=== PATIENT | female | born 1940 | race Caucasian/White ===

== ENCOUNTER 2019-04-14 13:38 | Inpatient (IN) | payer OTHER ==
[~2019-04-14] VITALS: Ht 162.6 cm; Wt 83.1 kg
[2019-04-14] MEDS ORDERED: ABILIFY10 MG PO (14:56)
[2019-04-14] MEDS ORDERED: APAP650 PO (14:57)
[2019-04-14] MEDS ORDERED: ZYLOPRIM300 MG PO (14:58)
[2019-04-14] MEDS ORDERED: AMLODIPINE BESYL5 M1 PO (14:59)
[2019-04-14] MEDS ORDERED: ASPIRIN325 PO (15:00)
[2019-04-14] MEDS ORDERED: DIPHENHIST50 MG PO (15:06)
[2019-04-14] MEDS ORDERED: ATIVAN0.5 MG PO (15:06)
[2019-04-14] MEDS ORDERED: BUMETANIDE0.25 MG/1 PO (15:07)
[2019-04-14] MEDS ORDERED: CYMBALTA60 MG PO (15:07)
[2019-04-14] MEDS ORDERED: NEURONTIN 300M300 M2 PO (15:08)
[2019-04-14] MEDS ORDERED: HYDROXYCHLOROQ200 M1 PO (15:09)
[2019-04-14] MEDS ORDERED: NORCO 7.5-3251 EACH PO (15:09)
[2019-04-14] MEDS ORDERED: SYNTHROID112 MC1 PO (15:10)
[2019-04-14] MEDS ORDERED: COZAAR 25 MG TA25 M2 PO (15:10)
[2019-04-14] MEDS ORDERED: MIRALAX17 GM (15:11)
[2019-04-14] MEDS ORDERED: NAPROXEN250 MG PO (15:12)
[2019-04-14] MEDS ORDERED: PROTONIX40 M1 PO (15:13)
[2019-04-14] MEDS ORDERED: NAPROSYN500 MG PO (15:13)
[2019-04-14] MEDS ORDERED: POTASSIUM CHLO10 MEQ PO (15:14)
[2019-04-14] MEDS ORDERED: PROPRANOLOL 20M20 M1 PO (15:15)
[2019-04-14] MEDS ORDERED: DICLOFENAC SOD100 G1 (15:16)
[2019-04-14] MEDS ORDERED: ZANTAC 150MG T150 MG PO (15:17)
[2019-04-14 16:23] LABS: HEMATOCRIT 32.7 % (37.0-47.0); MCH 31.3 pg (26.0-34.0); MCHC 33.6 g/dL (28.0-37.0); RBC 3.52 mil/uL (4.20-5.00); RDW 15.9 % (10.5-14.5); WBC 8.8 thou/uL (4.0-11.0)
[2019-04-14 16:31] LABS: CALCIUM 9.2 mg/dL (8.5-10.1); CREATININE 1.4 mg/dL (0.6-1.0); POTASSIUM 3.5 mmol/L (3.5-5.1)
[2019-04-14 16:37] LABS: ALBUMIN 3.6 g/dL (3.4-5.0); TOTAL BILIRUBIN 0.5 mg/dL (<0.1-1.0); TOTAL PROTEIN 7.5 g/dL (6.4-8.2)
[2019-04-14 21:21] VITALS: BP 133/52
[2019-04-15 01:10] VITALS: BP 134/43
[2019-04-15 05:26] VITALS: BP 124/48
[2019-04-15 08:05] VITALS: BP 114/40
[2019-04-15 08:54] LABS: CALCIUM 9.8 mg/dL (8.5-10.1); CREATININE 1.4 mg/dL (0.6-1.0); POTASSIUM 3.8 mmol/L (3.5-5.1)
[2019-04-15 08:59] LABS: TROPONIN-I 0.69 ng/mL (<0.06)
--- NOTE | 2019-04-15 11:30 | 2DMMODE ---
[facility] [place] [address] 2 D/M-MODE ECHOCARDIOGRAM Name: KENYETTA ETIENNE Room #: 218-P ADM IN M.R.#: [id number] ������������� Admission: 04/14/19 ������������� Attend Phys: Eben Morse MD Discharge: ��� ������������� ��� Date of : 42 Date of Service: 04/15/19 1130 �� Report #: [id number] �������� ��������������������������������������������[id number] THIS REPORT FOR: //name// APPROVED REPORT Study performed: 04/15/2019 08:53:00 EXAM: Comprehensive 2D, Doppler, and color-flow Echocardiogram Patient Location: Bedside Room #: 218 Status: on-call BSA: 1.83 HR: 74 bpm BP: 124/48 mmHg Rhythm: NSR Other Information Study Quality: Adequate Indications Possible NSTEMI, elevated troponin, short of breath, CHF. Hx: HTN, HLP. 2D Dimensions RVDd: 33.24 mm IVSd: 7.49 (7-11mm) LVOT Diam: 20.22 (18-24mm) LVDd: 52.64 mm PWd: 8.34 (7-11mm) LVDs: 35.64 (25-40mm) Aortic Root: 29.49 mm Volumes Left Atrial Volume (Systole) Single Plane 4CH: 74.80 mL Single Plane 2CH: 75.93 mL LA ESV Index: 45.00 mL/m2 Aortic Valve AoV Peak Jacoby.: 3.03 m/s AO Peak Gr.: 36.83 mmHg LVOT Max P.10 mmHg AO Mean Gr.: 24.07 mmHg AO V2 Mean: 2.35 m/s LVOT Max V: 1.01 m/s AO V2 VTI: 73.74 cm CARMEN Vmax: 1.07 cm2 Mitral Valve [facility] [place] [address] 2 D/M-MODE ECHOCARDIOGRAM Name: KENYETTA ETIENNE Room #: 218-P [facility] IN ..#: [id number] ������������� Admission: 04/14/19 ������������� Attend Phys: Eben Morse MD Discharge: ��� ������������� ��� Date of : 42 Date of Service: 04/15/19 1130 �� Report #: [id number] �������� ��������������������������������������������[id number] E/A Ratio: 1.8 MV Decel. Time: 172.06 ms MV E Max Jacoby.: 1.50 m/s MV A Jacoby.: 0.83 m/s MV PHT: 49.90 ms IVRT: 83.04 ms Pulmonary Valve PV Peak Jacoby.: 1.16 m/s PV Peak Gr.: 5.41 mmHg Pulmonary Vein P Vein S: 0.45 m/s P Vein D: 0.77 m/s P Vein S/D Ratio: 0.58 Tricuspid Valve TR Peak Jacoby.: 3.03 m/s RAP Estimate: 5.00 mmHg TR Peak Gr.: 36.83 mmHg PA Pressure: 42.00 mmHg Left Ventricle The left ventricle is normal size. Regional wall motion abnormalities are noted. Mild basal septal hypertrophy is present. Left ventricular systolic function is borderline. LVEF is 50%. Moderate diastolic dysfunction is present (pseudonormal filling). Right Ventricle The right ventricle is normal size. The right ventricular systolic function is normal. Atria Left atrium is moderately dilated. The right atrium size is normal. Aortic Valve Aortic valve leaflets are moderately thickened and calcified. Mild aortic regurgitation. There is moderate valvular aortic stenosis. Calculated aortic valve area is 1.1 cm2 with maximum pressure gradient of 37 mmHg and mean pressure gradient of 24 mmHg. Mitral Valve Mitral valve leaflets are thickened. Mild to moderate mitral annular calcification. Moderate mitral regurgitation. No evidence of mitral valve stenosis. Tricuspid Valve [address] [address] 2 D/M-MODE ECHOCARDIOGRAM Name: KADEEMKENYETTA LOAIZA Room #: 218-P [facility] IN [facility]#: [id number] ������������� Admission: 04/14/19 ������������� Attend Phys: Eben Morse MD Discharge: ��� ������������� ��� Date of : 42 Date of Service: 04/15/19 1130 �� Report #: [id number] �������� ��������������������������������������������[id number] The tricuspid valve is normal in structure. Mild tricuspid regurgitation. Estimated PAP is 40-45mmHg. Pulmonic Valve The pulmonary valve is normal in structure. Trace pulmonic regurgitation. Great Vessels The aortic root is normal in size. IVC is normal in size and collapses >50% with inspiration. Pericardium There is no pericardial effusion. <Conclusion> The left ventricle is normal size. Left ventricular systolic function is borderline. LVEF is 50%. Moderate diastolic dysfunction is present (pseudonormal filling). The right ventricle is normal size. Left atrium is moderately dilated. There is moderate valvular aortic stenosis. Mild aortic regurgitation. Mitral valve leaflets are thickened. Mild to moderate mitral annular calcification. Moderate mitral regurgitation. Mild tricuspid regurgitation. Estimated PAP is 40-45mmHg. ��������������������������������������������� <ELECTRONICALLY SIGNED> ���������������������������������������� By: Mario Mcgregor MD ��������������������������������������������� 04/15/19 1130 1130 1130 Mario Mcgregor MD /INF
[2019-04-15] MEDS ORDERED: LOSARTAN-HCTZ1 EAC1 PO (11:32)
[2019-04-15] MEDS ORDERED: MIRALAX17 GM PO (11:33)
[2019-04-15 12:05] VITALS: BP 125/60
[2019-04-15 16:10] VITALS: BP 113/76
[2019-04-15 20:51] VITALS: BP 126/47
--- NOTE | 2019-04-15 21:27 | HC ---
[facility] [place] [address] CONSULTATION Name: KENYETTA ETIENNE Room #: 218-P ADM IN M.R.#: [id number] Admission: 04/14/19 ������������������ Attend Phys: Eben Morse MD Discharge: ������������������ Date of : 42 Report #: [id number] THIS REPORT FOR: //name// CC: Jack Morse DATE OF SERVICE: 04/15/2019 INDICATION: Dyspnea. HISTORY OF PRESENT ILLNESS: This is a 78-year-old female with a history of hypertension, hypercholesterolemia, depression, thyroid disease, renal artery stent, presenting with shortness of breath. Yesterday morning, she developed sudden onset of nausea and vomiting. This was followed by shortness of breath and chest discomfort. She lives in an assisted living facility. She reports that the left side of her chest was heavy, but denies any sharp pain. She was evaluated in the ER at [facility]. Chest x-ray confirmed congestive heart failure and the initial troponin level was mildly elevated. The patient was given Lasix and subsequently transferred to [facility] for further evaluation. A repeat chest x-ray reveals an improvement in her pulmonary congestion. She feels symptomatically improved. She denies any further episodes of chest pains. There is no history of fever, chills or orthopnea. PAST MEDICAL HISTORY: Remote history of renal artery stent, hypertension, hypercholesterolemia, thyroid disease, depression. ALLERGIES: INCLUDE ERYTHROMYCIN, MEPERIDINE, PENICILLIN, PROPOXYPHENE. MEDICATIONS: At home include amlodipine, aspirin, Bumex 1 mg, losartan and propranolol twice a day. SOCIAL HISTORY: Denies tobacco use. Lives in an assisted living facility. REVIEW OF SYSTEMS: A full 10-point review of systems performed. Only the pertinent positives and negatives are described in the HPI. PHYSICAL EXAMINATION: VITAL SIGNS: Blood pressure is 130/60, heart rate is 70 beats per minute. GENERAL APPEARANCE: This is a well-developed, well-nourished female, in no acute distress. HEENT: Normocephalic, atraumatic. Oral mucosa moist. NECK: Supple. LUNGS: Clear to auscultation. CARDIAC: Regular rate and rhythm. S1, S2 positive. ABDOMEN: Soft, nontender. [facility] [address] [place] [address] CONSULTATION Name: KNEYETTA ETIENNE Room #: 218-P ADM IN M.R.#: [id number] Admission: 04/14/19 ������������������ Attend Phys: Eben Morse MD Discharge: ������������������ Date of : 42 Report #: [id number] EXTREMITIES: No cyanosis. Trace edema. ECG reveals sinus rhythm, LVH, mild ST segment depressions in the lateral leads, rule out repolarization abnormality versus ischemia. LABORATORY VALUES: Sodium is 132, creatinine is 1.4. Troponin is 1.84. White count is 8.8, hemoglobin is 11.0. ASSESSMENT AND PLAN: 1. Non-ST elevation myocardial infarction, positive troponin with chest discomfort. EKG shows subtle ST segment depression in the lateral leads. Given her presentation with congestive heart failure, I did recommend proceeding with a cardiac catheterization. Her creatinine is mildly elevated, we will discontinue Lasix and follow. This was discussed with the patient and her son over the phone. They understand and wish to proceed. Continue with aspirin therapy. 2. Congestive heart failure, improved after diuresis. We will hold Lasix at this time. Await echo findings. We will change the beta pamela to Toprol. 3. Hypertension, continue with losartan. 4. Hypercholesterolemia, statin medication. ��������������������������������������������� <ELECTRONICALLY SIGNED> ���������������������������������������� By: Mario Mcgregor MD ��������������������������������������������� 04/15/192126 1000 26 Mario Mcgregor MD /nt
[2019-04-16 05:05] VITALS: BP 131/55
[2019-04-16 05:41] LABS: HEMOGLOBIN 9.8 gm/dL (12.0-15.0); MCH 31.6 pg (26.0-34.0); MCHC 33.9 g/dL (28.0-37.0); MCV 93.3 fL (80.0-100.0); RBC 3.11 mil/uL (4.20-5.00); RDW 16.1 % (10.5-14.5); WBC 9.6 thou/uL (4.0-11.0)
[2019-04-16 06:12] LABS: ANION GAP 6 mmol/L (7-16); BUN 24 mg/dL (7-18); CHLORIDE 91 mmol/L (98-107); CHOLESTEROL 204 mg/dL (<200); CO2 33 mmol/L (21-32); CREATININE 1.2 mg/dL (0.6-1.0); GLUCOSE 117 mg/dL (74-106); HDL CHOLESTEROL 45 mg/dL (>40); LDL CHOLESTEROL 116 mg/dL (<100); POTASSIUM 3.3 mmol/L (3.5-5.1); SODIUM 130 mmol/L (136-145); TC:HDL 4.5 Ratio (Not establshd); TRIGLYCERIDE 218 mg/dL (<150); VLDL 44 mg/dL (<40)
[2019-04-16 06:13] LABS: SERUM ASSESSMENT Clear
--- NOTE | 2019-04-16 08:14 | EKG ---
[address] [address] ELECTROCARDIOGRAM REPORT Name: KENYETTA ETIENNE Room #: 218-P ADM IN M.R.#: [id number] ������������������ Admission: 04/14/19 ������������������ Attend Phys: Eben Morse MD Discharge: ������������������ Date of : 42 Report #: [id number] ����������������������������������������������������������������� [id number] THIS REPORT FOR: //name// [facility] Test Date: 2019-04-14 Test Time: 20:53:35 Pat Name: KENYETTA ALMANZA Department: Room: 218 P Gender: F Campground Caretaker: Roly SHARMA : 1940 Requested By: Mario Mcgregor Order Number: [id number] MD: Mario Mcgregor Measurements Intervals [place] Rate: 71 P: 0 OK: 48 QRS: 3 QRSD: 122 T: 56 QT: 488 QTc: 531 Interpretive Statements Sinus rhythm First-degree AV block Probable left ventricular hypertrophy Nonspecific ST segment abnormality Prolonged QT interval Compared to ECG 01/23/2009 10:24:15 Prolonged QT interval now present Electronically Signed On 04-16-2019 8:14:34 CDT by Mario Mcgregor [email or web address] ��������������������������������������������� <ELECTRONICALLY SIGNED> ���������������������������������������� By: Mario Mcgregor MD ��������������������������������������������� 04/16/19813 52 52 Mario Mcgregor MD /AMANDA
[2019-04-16 08:30] VITALS: BP 139/63
[2019-04-16 10:33] LABS: HEMATOCRIT 30.4 % (37.0-47.0); HEMOGLOBIN 10.3 gm/dL (12.0-15.0); MCH 31.8 pg (26.0-34.0); MCHC 33.9 g/dL (28.0-37.0); MCV 93.8 fL (80.0-100.0); RBC 3.24 mil/uL (4.20-5.00); RDW 15.9 % (10.5-14.5); WBC 9.8 thou/uL (4.0-11.0)
[2019-04-16 10:35] LABS: CALCIUM 9.4 mg/dL (8.5-10.1); CREATININE 1.2 mg/dL (0.6-1.0); POTASSIUM 3.5 mmol/L (3.5-5.1)
[2019-04-16 12:00] VITALS: BP 146/65
[2019-04-16 15:05] VITALS: BP 136/65
[2019-04-16 19:47] VITALS: BP 133/51
[2019-04-16 23:26] VITALS: BP 147/60
[2019-04-17 03:18] LABS: HEMATOCRIT 28.4 % (37.0-47.0); HEMOGLOBIN 9.5 gm/dL (12.0-15.0); MCH 31.5 pg (26.0-34.0); MCHC 33.3 g/dL (28.0-37.0); MCV 94.6 fL (80.0-100.0); WBC 10.7 thou/uL (4.0-11.0)
[2019-04-17 03:28] LABS: CALCIUM 8.8 mg/dL (8.5-10.1); POTASSIUM 3.8 mmol/L (3.5-5.1)
[2019-04-17 04:33] VITALS: BP 114/63
[2019-04-17 07:45] VITALS: BP 129/45
--- NOTE | 2019-04-17 10:10 | CATHLAB ---
[facility] [place] [place] [address] INVASIVE PROCEDURE REPORT Name: KADEEMKENYETTA LOAIZA Room #: 218-P ADM IN ..#: [id number] ������������� Admission: 04/14/19 ������������� Attend Phys: Eben Morse MD Discharge: ��� ������������� ��� Date of : 42 Date of Service: 04/17/19 1009 �� Report #: [id number] �������� ��������������������������������������������[id number] THIS REPORT FOR: //name// APPROVED REPORT Study performed: 04/16/2019 08:09:22 Patient Details Patient Status: In-Patient Room #: The patient is a 78 year-old female Event Personnel Mario Mcgregor Deckhand Engineer, Jo Bustos RN RN, Fely Solorio, Marie Ruiz EMG TECHNICIAN Scrub Procedures Performed Art Access - R femoral artery* [id number] Initial Mod Sed Same Phys/QHP Gr5y 725142 Coronary Angiography Only [id number] CORANG Hemostasis with Manual pressure Indication CHF Current Status: No , Dyspnea, Unstable angina Risk Factors Hypercholesterolemia, Hypertension Procedure Narrative The patient was brought urgently to the Cardiac Catheterization Laboratory and was prepped and draped in a sterile manner. The Right Groin^ was infiltrated with 1% Lidocaine subcutaneous anesthesia. A PINNACLE 4FR Sheath #[id number] sheath was inserted into the RFA^. Coronary angiography was performed using coronary diagnostic catheters. The right coronary system was accessed and visualized with a JR 4 catheter. The left coronary system was accessed and visualized with a JL 4 catheter. Hemostasis was obtained with manual pressure following sheath removal without any complications. The patient tolerated the procedure well and there were no complications associated with the procedure. There was no hematoma. Intraoperative Conscious Sedation Sedation start time: 08:42 Case end Time: 09:15 Fentanyl 50 mcg Fluoro Time: 7.31 minutes [facility] [address] [place] [address] INVASIVE PROCEDURE REPORT Name: KADEEM CAMIKENYETTA Room #: 218-P [facility] IN ..#: [id number] ������������� Admission: 04/14/19 ������������� Attend Phys: Eben Morse MD Discharge: ��� ������������� ��� Date of : 42 Date of Service: 04/17/19 1009 �� Report #: [id number] �������� ��������������������������������������������[id number] Dose: DAP 5458.00 cGycm2 535 mGy Contrast Type and Amount: Visipaque 45 ml Coronary Angiography The patient's coronary anatomy is right dominant. Diagnostic Cath Left Main There is a moderate stenosis at the distal segment, 50%. LAD There is a moderate stenosis in the proximal segment, 50-60%. There is mild diffuse disease in the mid segment. The distal segment is patent with no flow-limiting lesions. Diagonal 1 There is a patent vessel, with no flow-limiting lesions. Circumflex There is a severe stenosis at the ostium, probably begins in the distal left main, at least 95%. OM1 There is a moderate size caliber vessel, supplies multiple branches as it traverses down the lateral wall. This vessel is patent with no flow-limiting lesions. Right Coronary This is a dominant vessel with a severe stenosis in the proximal segment, 90%. R PDA This is a patent vessel, with no flow-limiting lesions. RPLV This is a patent vessel, with no flow-limiting lesions. Left Ventriculography Left Ventriculography was not performed. Ejection Fraction was >55% based off patient's Echocardiogram. Hemodynamics The aortic pressure is 166/77 mmHg with a mean of 112 mmHg. Conclusion 1. 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 2. Preserved LV systolic function. 3. History of aortic stenosis. 4. Recommend CV surgical consultation. ��������������������������������������������� <ELECTRONICALLY SIGNED> ���������������������������������������� By: Mario Mcgregor MD ��������������������������������������������� 04/17/191008 08 08 Mario Mcgregor MD /INF
[2019-04-17 10:40] LABS: BASOPHILS 0.2 % (0.0-2.0); EOSINOPHILS 0.2 % (0.0-3.0); HEMATOCRIT 26.8 % (37.0-47.0); HEMOGLOBIN 9.1 gm/dL (12.0-15.0); LYMPHOCYTES 15.7 % (24.0-44.0); MCH 31.8 pg (26.0-34.0); MCHC 33.9 g/dL (28.0-37.0); MCV 93.9 fL (80.0-100.0); MONOCYTES 8.4 % (1.0-8.0); PLATELET COUNT 237 thou/uL (150-400); POLYS 75.5 % (36.0-66.0); RBC 2.85 mil/uL (4.20-5.00); WBC 10.7 thou/uL (4.0-11.0)
[2019-04-17 10:53] LABS: APTT 25.2 Seconds (24.5-32.8); PROTIME 10.9 Seconds (9.3-11.4)
[2019-04-17 10:54] LABS: CALCIUM 8.6 mg/dL (8.5-10.1); POTASSIUM 3.2 mmol/L (3.5-5.1)
[2019-04-17 11:00] LABS: ALBUMIN 3.3 g/dL (3.4-5.0); TOTAL BILIRUBIN 0.4 mg/dL (<0.1-1.0); TOTAL PROTEIN 6.5 g/dL (6.4-8.2)
[2019-04-17 11:10] VITALS: BP 119/62
[2019-04-17 15:20] LABS: URINE BILIRUBIN NEGATIVE (Negative); URINE BLOOD NEGATIVE (Negative); URINE CLARITY CLEAR; URINE COLOR YELLOW; URINE GLUCOSE-RANDOM* NEGATIVE (Negative); URINE KETONES NEGATIVE (Negative); URINE LEUKOCYTES-REFLEX 2+ (Negative); URINE NITRITE-REFLEX NEGATIVE (Negative); URINE PROTEIN (DIPSTICK) NEGATIVE (Negative); URINE SPECIFIC GRAVITY 1.015 (1.005-1.035)
[2019-04-17 15:31] LABS: BACTERIA-REFLEX None Seen /HPF (None Seen); CASTS None Seen /LPF (None Seen); CRYSTALS None Seen /LPF (None Seen); SQUAMOUS 0-3 Few /LPF (0-3); URINE RBC 0-2 Rare /HPF (0-2); URINE WBC-REFLEX >25 Many /HPF (0-5); WBC CLUMPS Few (None Seen)
[2019-04-17 16:25] VITALS: BP 97/75
[2019-04-17 19:51] VITALS: BP 130/52
[2019-04-18 02:05] LABS: GLYCOHEMOGLOBIN (HGB A1C) 5.7 % (4.8-5.6)
[2019-04-18 05:09] VITALS: BP 134/43
[2019-04-18 05:13] VITALS: BP 130/49
[2019-04-18 14:16] LABS: MCV 95.1 fL (80.0-100.0)
[2019-04-18 14:18] LABS: MCH 32.2 pg (26.0-34.0); MCHC 33.9 g/dL (28.0-37.0); RBC 1.86 mil/uL (4.20-5.00); RDW 15.6 % (10.5-14.5); WBC 12.1 thou/uL (4.0-11.0)
[2019-04-18 14:26] LABS: HEMATOCRIT 17.7 % (37.0-47.0)
[2019-04-18 14:28] LABS: INR 1.3; PROTIME 13.5 Seconds (9.3-11.4)
[2019-04-18 14:34] LABS: APTT 37.8 Seconds (24.5-32.8)
[2019-04-18 15:18] LABS: POC BE 8 mmol/L (-2.0 to +3.0); POC CA IONIZED 4.7 mg/dL (4.5-5.3); POC GLUCOSE 103 mg/dL (70-99); POC HCO3 32.5 mmol/L (22.0-26.0); POC HEMOGLOBIN 8.5 g/dL (12.0-15.0); POC POTASSIUM 3.7 mmol/L (3.5-5.1); POC SODIUM 131 mmol/L (136-145); POC pCO2 48.4 mmHg (35.0-45.0); POC pH 7.436 (7.360-7.450)
[2019-04-18 15:18] LABS: POC BE 3 mmol/L (-2.0 to +3.0); POC CA IONIZED 4.5 mg/dL (4.5-5.3); POC GLUCOSE 143 mg/dL (70-99); POC HCO3 28.3 mmol/L (22.0-26.0); POC HEMOGLOBIN 7.5 g/dL (12.0-15.0); POC POTASSIUM 3.1 mmol/L (3.5-5.1); POC SODIUM 132 mmol/L (136-145); POC pCO2 46.8 mmHg (35.0-45.0); POC pH 7.389 (7.360-7.450)
[2019-04-18 15:19] LABS: POC BE 1 mmol/L (-2.0 to +3.0); POC CA IONIZED 4.3 mg/dL (4.5-5.3); POC GLUCOSE 123 mg/dL (70-99); POC HEMOGLOBIN 6.8 g/dL (12.0-15.0); POC POTASSIUM 3.7 mmol/L (3.5-5.1); POC SODIUM 132 mmol/L (136-145); POC pCO2 45.2 mmHg (35.0-45.0); POC pH 7.368 (7.360-7.450)
[2019-04-18 15:19] LABS: POC BE 5 mmol/L (-2.0 to +3.0); POC CA IONIZED 4.2 mg/dL (4.5-5.3); POC GLUCOSE 127 mg/dL (70-99); POC HCO3 28.5 mmol/L (22.0-26.0); POC HEMOGLOBIN 6.8 g/dL (12.0-15.0); POC POTASSIUM 3.9 mmol/L (3.5-5.1); POC SODIUM 135 mmol/L (136-145); POC pCO2 37.7 mmHg (35.0-45.0); POC pH 7.486 (7.360-7.450)
[2019-04-18 15:19] LABS: POC BE -2 mmol/L (-2.0 to +3.0); POC CA IONIZED 5.2 mg/dL (4.5-5.3); POC GLUCOSE 136 mg/dL (70-99); POC HCO3 23.1 mmol/L (22.0-26.0); POC HEMOGLOBIN 6.5 g/dL (12.0-15.0); POC POTASSIUM 4.1 mmol/L (3.5-5.1); POC SODIUM 133 mmol/L (136-145); POC pCO2 36.8 mmHg (35.0-45.0); POC pH 7.406 (7.360-7.450)
[2019-04-18 15:19] LABS: POC BE 5 mmol/L (-2.0 to +3.0); POC CA IONIZED 4.3 mg/dL (4.5-5.3); POC GLUCOSE 126 mg/dL (70-99); POC HCO3 29.4 mmol/L (22.0-26.0); POC HEMOGLOBIN 6.1 g/dL (12.0-15.0); POC POTASSIUM 3.6 mmol/L (3.5-5.1); POC SODIUM 133 mmol/L (136-145); POC pCO2 47.5 mmHg (35.0-45.0); POC pH 7.399 (7.360-7.450)
[2019-04-18 15:19] LABS: POC BE 2 mmol/L (-2.0 to +3.0); POC CA IONIZED 4.1 mg/dL (4.5-5.3); POC GLUCOSE 128 mg/dL (70-99); POC HCO3 26.8 mmol/L (22.0-26.0); POC HEMOGLOBIN 5.4 g/dL (12.0-15.0); POC POTASSIUM 4.1 mmol/L (3.5-5.1); POC SODIUM 131 mmol/L (136-145); POC pCO2 41.9 mmHg (35.0-45.0); POC pH 7.414 (7.360-7.450)
[2019-04-18 15:19] LABS: POC BE 4 mmol/L (-2.0 to +3.0); POC CA IONIZED 4.2 mg/dL (4.5-5.3); POC GLUCOSE 133 mg/dL (70-99); POC HCO3 27.5 mmol/L (22.0-26.0); POC HEMOGLOBIN 6.8 g/dL (12.0-15.0); POC POTASSIUM 3.6 mmol/L (3.5-5.1); POC SODIUM 135 mmol/L (136-145); POC pCO2 38.8 mmHg (35.0-45.0); POC pH 7.459 (7.360-7.450)
[2019-04-18 15:19] LABS: POC BE 3 mmol/L (-2.0 to +3.0); POC CA IONIZED 4.2 mg/dL (4.5-5.3); POC GLUCOSE 129 mg/dL (70-99); POC HCO3 28.4 mmol/L (22.0-26.0); POC HEMOGLOBIN 7.1 g/dL (12.0-15.0); POC POTASSIUM 3.9 mmol/L (3.5-5.1); POC SODIUM 134 mmol/L (136-145); POC pCO2 47.1 mmHg (35.0-45.0); POC pH 7.388 (7.360-7.450)
[2019-04-18 15:54] VITALS: BP 102/38; BP 91/32
[2019-04-18 15:59] LABS: HEMATOCRIT 28.7 % (37.0-47.0); HEMOGLOBIN 9.7 gm/dL (12.0-15.0); MCH 31.3 pg (26.0-34.0); MCHC 33.7 g/dL (28.0-37.0); MCV 92.8 fL (80.0-100.0); RBC 3.09 mil/uL (4.20-5.00); WBC 14.6 thou/uL (4.0-11.0)
[2019-04-18 16:06] LABS: CALCIUM 9.5 mg/dL (8.5-10.1); CREATININE 1.2 mg/dL (0.6-1.0); MAGNESIUM 2.4 mg/dL (1.8-2.4); POTASSIUM 3.9 mmol/L (3.5-5.1)
[2019-04-18 16:08] LABS: BE(vivo) -7.7 mmol/L (-2 to +3); HCO3 19.4 mmol/L (22.0-26.0); PCO2 46.2 mmHg (35.0-45.0); PO2 182.1 mmHg (80.0-100.0)
[2019-04-18 16:21] LABS: APTT 34.6 Seconds (24.5-32.8); INR 1.3; PROTIME 13.6 Seconds (9.3-11.4)
[2019-04-18 16:46] LABS: HCO3 20.7 mmol/L (22.0-26.0); PCO2 46.3 mmHg (35.0-45.0); PO2 77.5 mmHg (80.0-100.0); sO2 93.7 % (92.0-98.0)
[2019-04-18 16:47] LABS: pH 7.269 (7.360-7.450)
[2019-04-18 17:33] LABS: BE(vivo) -4.7 mmol/L (-2 to +3); HCO3 21.1 mmol/L (22.0-26.0); PCO2 41.9 mmHg (35.0-45.0); PO2 88.9 mmHg (80.0-100.0); sO2 96.1 % (92.0-98.0)
[2019-04-19] VITALS (10 sets, daily range): BP systolic 87–136; BP diastolic 33–76
[2019-04-19 00:40] LABS: BE(vivo) -5.8 mmol/L (-2 to +3); HCO3 18.7 mmol/L (22.0-26.0); PCO2 32.8 mmHg (35.0-45.0); PO2 119.1 mmHg (80.0-100.0); pH 7.374 (7.360-7.450); sO2 98.3 % (92.0-98.0)
[2019-04-19 05:21] LABS: HEMATOCRIT 23.2 % (37.0-47.0); HEMOGLOBIN 7.9 gm/dL (12.0-15.0); MCH 31.5 pg (26.0-34.0); MCHC 34.1 g/dL (28.0-37.0); MCV 92.4 fL (80.0-100.0); RBC 2.51 mil/uL (4.20-5.00); RDW 16.2 % (10.5-14.5)
[2019-04-19 05:34] LABS: CALCIUM 8.4 mg/dL (8.5-10.1); CREATININE 1.4 mg/dL (0.6-1.0); MAGNESIUM 2.2 mg/dL (1.8-2.4); POTASSIUM 4.4 mmol/L (3.5-5.1)
--- NOTE | 2019-04-19 08:18 | EKG ---
[address] [address] ELECTROCARDIOGRAM REPORT Name: KENYETTA ETIENNE Room #: 238-P ADM IN M.R.#: [id number] ������������������ Admission: 04/14/19 ������������������ Attend Phys: Eben Morse MD Discharge: ������������������ Date of : 42 Report #: [id number] ����������������������������������������������������������������� [id number] THIS REPORT FOR: //name// [facility] Test Date: 2019-04-19 Test Time: 07:46:23 Pat Name: KENYETTA ALMANZA Department: Room: 238 P Gender: F Entrepreneur: MAUDE : 1940 Requested By: Pelon Cabello Order Number: [id number] MD: Bradley Kaufman Measurements Intervals [place] Rate: 64 P: 0 AL: 196 QRS: 34 QRSD: 109 T: 40 QT: 472 QTc: 487 Interpretive Statements Sinus rhythm with intermittent V pacing Compared to ECG 04/14/2019 20:53:35 Electronically Signed On 04-19-2019 8:18:27 CDT by Bradley Kaufman [email or web address] ��������������������������������������������� <ELECTRONICALLY SIGNED> ���������������������������������������� By: Bradley Kaufman MD ��������������������������������������������� 04/19/19 0818 5 5 MD KATY Fuchs
[2019-04-19 09:50] LABS: BE(vivo) -6.8 mmol/L (-2 to +3); HCO3 18.1 mmol/L (22.0-26.0); PCO2 33.9 mmHg (35.0-45.0); PO2 93.6 mmHg (80.0-100.0); pH 7.346 (7.360-7.450); sO2 96.9 % (92.0-98.0)
[2019-04-19 17:28] LABS: MCHC 33.3 g/dL (28.0-37.0); MCV 93.2 fL (80.0-100.0); RBC 2.26 mil/uL (4.20-5.00); RDW 16.1 % (10.5-14.5); WBC 14.7 thou/uL (4.0-11.0)
[2019-04-19 17:32] LABS: URINE SODIUM-RANDOM* <5 mmol/L
[2019-04-19 17:42] LABS: CALCIUM 8.1 mg/dL (8.5-10.1); CREATININE 1.7 mg/dL (0.6-1.0); POTASSIUM 3.9 mmol/L (3.5-5.1)
[2019-04-19 18:09] LABS: BE(vivo) -7.8 mmol/L (-2 to +3); PCO2 31.2 mmHg (35.0-45.0); PO2 160.1 mmHg (80.0-100.0); pH 7.353 (7.360-7.450)
[2019-04-19 23:41] LABS: URINE BILIRUBIN NEGATIVE (Negative); URINE BLOOD NEGATIVE (Negative); URINE CLARITY CLEAR; URINE COLOR YELLOW; URINE GLUCOSE-RANDOM* NEGATIVE (Negative); URINE KETONES NEGATIVE (Negative); URINE LEUKOCYTES-REFLEX NEGATIVE (Negative); URINE NITRITE-REFLEX NEGATIVE (Negative); URINE PROTEIN (DIPSTICK) NEGATIVE (Negative); URINE UROBILINOGEN 0.2 E.U./dl (0.2-1.0)
[2019-04-20] VITALS (21 sets, daily range): BP systolic 82–138; BP diastolic 32–66
[2019-04-20 05:45] LABS: HEMATOCRIT 22.3 % (37.0-47.0); HEMOGLOBIN 7.6 gm/dL (12.0-15.0); MCH 31.1 pg (26.0-34.0); MCHC 34.1 g/dL (28.0-37.0); MCV 91.3 fL (80.0-100.0); RBC 2.44 mil/uL (4.20-5.00); RDW 15.9 % (10.5-14.5); WBC 12.9 thou/uL (4.0-11.0)
[2019-04-20 06:04] LABS: CALCIUM 7.6 mg/dL (8.5-10.1); CREATININE 1.5 mg/dL (0.6-1.0); POTASSIUM 3.6 mmol/L (3.5-5.1)
--- NOTE | 2019-04-20 11:36 | O ---
[facility] [place] [address] OPERATIVE REPORT Name: KENYETTA ETIENNE Room #: 238-P ADM IN M.R.#: [id number] Admission: 04/14/19 ������������������ Attend Phys: Eben Morse MD Discharge: ������������������ Date of : 42 Report #: [id number] THIS REPORT FOR: //name// CC: Jack Morse DATE OF SERVICE: 04/18/2019 PREOPERATIVE DIAGNOSES: Coronary artery disease and aortic valve stenosis. POSTOPERATIVE DIAGNOSES: Coronary artery disease and aortic valve stenosis. OPERATION: Coronary artery bypass x 3 including left internal mammary artery to left anterior descending artery, saphenous vein to marginal and saphenous vein to posterior descending artery and aortic valve replacement with a 19 mm Harvey-Ma bioprosthesis and endoscopic harvest, left greater saphenous vein. SURGEON: Jakob Choudhury MD. CABLE SUPERVISOR: ADELFO Irwin. ANESTHESIA: General. INDICATIONS: The patient is a 78-year-old seen over the weekend for Dr. Mcgregor. The patient presents with unstable symptoms characterized by flash pulmonary edema and chest pressure. Angiogram showed a 99% proximal circumflex stenosis that involved the left anterior descending to some extent and an 80-90% right coronary stenosis. The patient also has moderately severe aortic stenosis with a calculated valve area of 1.1 cm2 and a peak gradient of approximately 35 mmHg. FINDINGS AND TECHNIQUE: After general anesthesia was established, saphenous vein was harvested and prepared for use as a conduit. Exposure was obtained through median sternotomy. Left internal mammary artery was harvested. Pericardial well was made. Cannulation sutures were placed. Heparin was given. Aorta was cannulated. Right atrium was cannulated. Cardioplegia needle was positioned in the aortic root. Retrograde cardioplegic catheter was placed in the coronary sinus. Cardiopulmonary bypass was established. The aorta was cross clamped. Antegrade and retrograde cardioplegia were given. Ice was poured into the pericardial well. The heart was stopped. During electromechanical arrest, the distal anastomoses were performed and end-to-side anastomosis was made between vein and the posterior descending artery. Cold cardioplegia was given. A separate segment of vein was sewn in [facility] [address] [place] [address] OPERATIVE REPORT Name: KENYETTA ETIENNE Room #: 238-P [facility] IN .R.#: [id number] Admission: 04/14/19 ������������������ Attend Phys: Eben Morse MD Discharge: ������������������ Date of : 42 Report #: [id number] end-to-side fashion to the large marginal artery. Cold cardioplegia was given. Left internal mammary artery was sewn in end-to-side fashion to the left anterior descending artery. Patency of this vessel was checked with the temperature technique. Cold cardioplegia was given. Attention was turned to the aorta and the valve was replaced. During this period, cardioplegia was given every 15 minutes through the retrograde catheter and down the vein grafts. An aortotomy was made approximately 15 mm above the right coronary ostium. The aortic valve was calcific, valve leaflets were excised and annulus was decalcified. Interrupted Ethibond sutures were placed sequentially through the [place] band aortic annulus and then through the sewing ring of a 19 mm Harvey-Ma bioprosthesis chosen for both patient and annulus size. The valve was lowered into place and sutures were secured with the Cor-Knot device. The valve seemed to sit nicely. The aortotomy was closed with a 2-layer closure. At this point, 2 proximal anastomoses were performed. When these were complete, warm retrograde cardioplegia was given followed by warm continuous blood to the coronary sinus. When this infusion was complete, the crossclamp was removed. De-airing maneuvers were performed. The anastomoses were inspected and found to be satisfactory. As the patient warmed, nice cardiac activity resumed. Chest tubes and pacing wires were placed. A marker was placed around the proximal anastomosis. When the patient was warm, she was weaned from cardiopulmonary bypass. Venous cannula was removed. Protamine was given. The aortic cannula was removed. Flows were measured in the bypass graft. When hemostasis was satisfactory, chest was irrigated with antibiotic solution and closed in the usual fashion. The patient was taken to the Intensive Care Unit in good condition having tolerated the procedure well. All counts reported as correct. ��������������������������������������������� <ELECTRONICALLY SIGNED> ���������������������������������������� By: Jakob Choudhury MD ��������������������������������������������� 04/20/19 1136 1409 1828 Jakob Choudhury MD /nt
--- NOTE | 2019-04-20 11:36 | HC ---
[facility] [place] [address] CONSULTATION Name: KADEEM ALMANZAKENYETTA Capps Room #: 238-P ADM IN M.R.#: [id number] Admission: 04/14/19 ������������������ Attend Phys: Eben Morse MD Discharge: ������������������ Date of : 41 Report #: [id number] THIS REPORT FOR: //name// CC: Jack Morse DATE OF SERVICE: 04/16/2019 We were asked by Dr. Mcgregor to see the patient. HISTORY OF PRESENT ILLNESS: The patient is a 78-year-old admitted on 04/14/2019 in transfer from [place]. The patient has a history of hypertension, hyperlipidemia, hypothyroidism and depression who was admitted from her adult living facility with acute onset of shortness of breath and chest pressure. The patient states that she was in her usual health until the evening before that when she had diarrhea. The next day, the patient had some generalized weakness associated with near syncope and then had a severe episode of shortness of breath with crushing chest pressure. The patient denies specifically chest pain, but states that she just could not get her breath. The patient was taken to the Emergency Department in [place] and found to have a BNP of 18,000 and a troponin of 0.2. Because of this, the patient was transferred to this facility. The patient states that she is generally in good health. She does have myriad complaints of problems with arthritis including Sjogren's syndrome and fibromyalgia. ALLERGIES: ERYTHROMYCIN, MEPERIDINE, PENICILLIN, PROPOXYPHENE. MEDICATIONS HISTORY: At home, the patient takes Abilify, acetaminophen, allopurinol, amlodipine, aspirin, lorazepam, diphenhydramine, Bumex, duloxetine, gabapentin, hydrocodone, Plaquenil, thyroxine, losartan, potassium, and ranitidine. PAST MEDICAL HISTORY: Includes pulmonary embolism in 1970, hysterectomy in 1972, hiatal hernia, heart surgery in 1980, gallbladder removal in 1998, right renal stent, right leg cancer removed in 2006, and as mentioned, hypertension, anxiety, depression, sleep apnea, GERD, Sjogren's syndrome and fibromyalgia. SOCIAL HISTORY: The patient formerly lived in [place] and [place], but now lives in [place]. FAMILY HISTORY: Positive for coronary artery disease and that the father had coronary artery disease and bypass surgery. REVIEW OF SYSTEMS: GENERAL: The patient denies fever or chills. [address] [address] CONSULTATION Name: KADEEM ALMANZARAMANKENYETTA Génesis Room #: 238-P [facility] IN .#: [id number] Admission: 04/14/19 ������������������ Attend Phys: Eben Morse MD Discharge: ������������������ Date of : 41 Report #: [id number] EYES: Denies vision change. HEENT: Denies headache, sore throat, nasal discharge. PULMONARY: As mentioned, the patient was short of breath with her acute exacerbation. CARDIAC: As mentioned, chest pressure. No palpitations. No pain. GASTROINTESTINAL: As mentioned, had diarrhea and some mild nausea, no blood in stool. GENITOURINARY: No urgency, frequency, or blood. MUSCULOSKELETAL: Bothered by multiple arthritides and a dry mouth with Sjogren's. NEUROLOGIC: No motor or sensory loss. SKIN: No rash or infection. HEMATOLOGIC: No easy bruisability or bleeding issues. PSYCHIATRIC: As mentioned, has depression and anxiety. PHYSICAL EXAMINATION: GENERAL: The patient is lying in bed, seems comfortable. VITAL SIGNS: Temperature is 36.5, heart rate 79, respiratory rate 14, blood pressure 136/95, and O2 sat 97% on 2 liters. HEENT: No scleral icterus, no arcus, normocephalic. Pupils are round, equal. NECK: No mass, no bruit. CHEST: Clear to auscultation anteriorly. HEART: Rhythm regular with a grade 1-2 systolic murmur in the aortic area radiating to the neck. ABDOMEN: Soft, no mass. EXTREMITIES: No clubbing. Trace edema. No cyanosis. Right knee is swollen from arthritis. No obvious large varicosities. Has small superficial varicosities. VASCULAR: 2+ popliteal pulses bilaterally, 2+ radial pulses bilaterally. PSYCHIATRIC: Shows insight into problem and is a pleasant lady, somewhat circumlocutory, however. IMPRESSION: Unfortunately, the cardiac catheterization films are not available to me to see at this time from Dr. Curran description. There is a tight circumflex lesion that may impinge on the left main or LAD. There was also a tight right lesion. The aortic valve is calcified with a valve area in the 1.1 cm2 range. As such, it appears that the patient needs coronary artery bypass surgery and aortic valve replacement. Risks and details of this were discussed with the patient. Options and alternatives were reviewed. The patient understands all of this and wishes to proceed. The patient is clinically stable. We will try to arrange surgery for Wednesday. Valve replacement using bioprosthesis would be appropriate in this 78-year-old woman with coronary artery disease. The patient understands all of this and the options and alternatives, and wishes to proceed. [address] [address] CONSULTATION Name: KENYETTA ETIENNE Génesis Room #: 238-P ADM IN M.R.#: [id number] Admission: 04/14/19 ������������������ Attend Phys: Eben Morse MD Discharge: ������������������ Date of : 41 Report #: [id number] Thank you for the consult. ��������������������������������������������� <ELECTRONICALLY SIGNED> ���������������������������������������� By: Jakob Choudhury MD ��������������������������������������������� 04/20/19 1136 1652 1156 Jakob Choudhury MD /nt
[2019-04-20 16:02] LABS: INR 1.2; PROTIME 12.5 Seconds (9.3-11.4)
[2019-04-21] VITALS (11 sets, daily range): BP systolic 99–141; BP diastolic 32–58
[2019-04-21 05:39] LABS: HEMATOCRIT 23.9 % (37.0-47.0); MCH 31.3 pg (26.0-34.0); MCHC 33.6 g/dL (28.0-37.0); MCV 93.2 fL (80.0-100.0); RBC 2.57 mil/uL (4.20-5.00); RDW 16.5 % (10.5-14.5); WBC 13.9 thou/uL (4.0-11.0)
[2019-04-21 05:46] LABS: CALCIUM 7.6 mg/dL (8.5-10.1); CREATININE 1.3 mg/dL (0.6-1.0); POTASSIUM 4.4 mmol/L (3.5-5.1)
--- NOTE | 2019-04-21 13:08 | PATH ---
[facility] [address] [place] [address] PATHOLOGY RPT PROCEDURE Name: MIRYAM ETIENNE Room #: 238-P ADM IN M.R.#: [id number] ������������������ Admission: 04/14/19 ������������������ Date of : 41 Discharge: Report #: [id number] Path Case #: [id number] [facility] Accession Number: [id number] . 01 Material submitted: . aortic body - AORTIC VALVE LEAFLET . 01 Clinical history: . Coronary artery disease and aortic valve dysfunction . 02 Diagnosis: Aortic valve leaflet, repair: - Valvular tissue with extensive myxoid degeneration as well as calcific sclerotic plaques. . (IUV:mml; 04/20/2019) QLM/04/20/2019 . 02 Electronically signed: . Christy Pierre MD, Pathologist NPI- [id number] . 01 Gross description: . The specimen is received in formalin, labeled "Miryam Etienne, aortic valve leaflet" and consists of 3 segments of rubbery to calcified yellow-uriostegui tissue measuring 3.4 x 2.3 x 0.3 cm in aggregate. A hvac sales representative section from each is submitted in A1 following decalcification. (SDY; 04/19/2019) SYU/SYU . 02 Pathologist provided ICD-10: I70.0 . 02 CPT . 355022, 933393 Specimen Comment: A courtesy copy of this report has been sent to Specimen Comment: [phone], , . Specimen Comment: Report sent to ,DR MONTES / DR ARELLANO Performed at: [address], [place] [id number] MD Luis Miguel Omer MD Phone: [phone] Performed at: [address] [id number] MD Christy Pierre MD Phone: [phone]
--- NOTE | 2019-04-21 13:41 | EKG ---
[address] [address] ELECTROCARDIOGRAM REPORT Name: KENYETTA ETIENNE Room #: 238-P ADM IN M.R.#: [id number] ������������������ Admission: 04/14/19 ������������������ Attend Phys: Eben Morse MD Discharge: ������������������ Date of : 41 Report #: [id number] ����������������������������������������������������������������� [id number] THIS REPORT FOR: //name// [facility] Test Date: 2019-04-21 Test Time: 07:02:37 Pat Name: KENYETTA ALMANZA Department: Room: 238 P Gender: F Oracle Erp Architect: MAUDE : 1940 Requested By: Nathaniel Peguero Order Number: [id number] MD: Bradley Kaufman Measurements Intervals [place] Rate: 91 P: [place]: QRS: 46 QRSD: 108 T: -58 QT: 435 QTc: 536 Interpretive Statements Atrial flutter Incomplete left bundle branch block Compared to ECG 04/19/2019 07:46:23 Left bundle-branch block now present Sinus rhythm no longer present Electronically Signed On 04-21-2019 13:41:06 CDT by Bradley Kaufman [email or web address] ��������������������������������������������� <ELECTRONICALLY SIGNED> ���������������������������������������� By: Bradley Kaufman MD ��������������������������������������������� 04/21/19 1341 0702 0702 Bradley Kaufman MD /EPI
[2019-04-21 17:55] LABS: INR 1.2
[2019-04-22] VITALS (18 sets, daily range): BP systolic 89–140; BP diastolic 32–72
[2019-04-22 06:01] LABS: INR 1.2; PROTIME 12.9 Seconds (9.3-11.4)
[2019-04-22 07:37] LABS: HEMOGLOBIN 8.3 gm/dL (12.0-15.0); MCH 31.4 pg (26.0-34.0); MCHC 33.1 g/dL (28.0-37.0); MCV 95.1 fL (80.0-100.0); RBC 2.63 mil/uL (4.20-5.00); RDW 16.8 % (10.5-14.5); WBC 13.2 thou/uL (4.0-11.0)
[2019-04-23 00:28] VITALS: BP 147/59
[2019-04-23 04:00] VITALS: BP 128/66
[2019-04-23 04:05] LABS: CALCIUM 7.9 mg/dL (8.5-10.1); CREATININE 1.8 mg/dL (0.6-1.0); MAGNESIUM 2.4 mg/dL (1.8-2.4)
[2019-04-23 04:15] LABS: INR 1.2
[2019-04-23 04:33] LABS: HEMOGLOBIN 8.6 gm/dL (12.0-15.0)
[2019-04-23 04:34] LABS: HEMATOCRIT 26.1 % (37.0-47.0); MCH 31.6 pg (26.0-34.0); MCHC 32.9 g/dL (28.0-37.0); RBC 2.72 mil/uL (4.20-5.00); RDW 17.3 % (10.5-14.5); WBC 13.1 thou/uL (4.0-11.0)
[2019-04-23 08:53] VITALS: BP 135/51
[2019-04-23 15:07] VITALS: BP 144/70
[2019-04-23 20:10] VITALS: BP 136/76
[2019-04-24] VITALS (9 sets, daily range): BP systolic 97–126; BP diastolic 47–71
[2019-04-24 03:51] LABS: CALCIUM 7.9 mg/dL (8.5-10.1); CREATININE 1.4 mg/dL (0.6-1.0); POTASSIUM 4.3 mmol/L (3.5-5.1)
--- NOTE | 2019-04-24 08:37 | EKG ---
[address] [address] ELECTROCARDIOGRAM REPORT Name: KENYETTA ETIENNE Room #: 206-P ADM IN M.R.#: [id number] ������������������ Admission: 04/14/19 ������������������ Attend Phys: Eben Morse MD Discharge: ������������������ Date of : 41 Report #: [id number] ����������������������������������������������������������������� [id number] THIS REPORT FOR: //name// [facility] Test Date: 2019-04-22 Test Time: 08:33:51 Pat Name: KENYETTA ALMANZA Department: Room: 206 Gender: F Snout Puller: jlchristina : 1940 Requested By: Kristin Mesa Order Number: [id number] MD: Bradley Kaufman Measurements Intervals [place] Rate: 72 P: 0 MS: 55 QRS: 38 QRSD: 114 T: 9 QT: 562 QTc: 616 Interpretive Statements Sinus rhythm Short MS interval Borderline intraventricular conduction delay Prolonged QT interval Compared to ECG 04/21/2019 07:02:37 Electronically Signed On 04-24-2019 8:37:12 CDT by Bradley Kaufman [email or web address] ��������������������������������������������� <ELECTRONICALLY SIGNED> ���������������������������������������� By: Bradley Kaufman MD ��������������������������������������������� 04/24/1937 2 2 Bradley Kaufman MD /AMANDA
--- NOTE | 2019-04-24 08:44 | EKG ---
[address] [address] ELECTROCARDIOGRAM REPORT Name: KENYETTA ETIENNE Room #: 206-P ADM IN M.R.#: [id number] ������������������ Admission: 04/14/19 ������������������ Attend Phys: Eben Morse MD Discharge: ������������������ Date of : 41 Report #: [id number] ����������������������������������������������������������������� [id number] THIS REPORT FOR: //name// [facility] Test Date: 2019-04-23 Test Time: 07:35:02 Pat Name: KENYETTA ALMANZA Department: Room: 206 P Gender: F Certified Shorthand Reporter: CHRISTIANO : 1940 Requested By: Pelon Cabello Order Number: [id number] MD: Bradley Kaufman Measurements Intervals [place] Rate: 63 P: 78 SD: 224 QRS: 34 QRSD: 119 T: -6 QT: 460 QTc: 471 Interpretive Statements Sinus rhythm Borderline prolonged SD interval Nonspecific intraventricular conduction delay Compared to ECG 04/21/2019 07:02:37 Intraventricular conduction delay now present Atrial flutter no longer present Left bundle-branch block no longer present Electronically Signed On 04-24-2019 8:44:27 CDT by Bradley Kaufman [email or web address] ��������������������������������������������� <ELECTRONICALLY SIGNED> ���������������������������������������� By: Bradley Kaufman MD ��������������������������������������������� 04/24/19 0844 0735 4 Bradley Kaufman MD /EPI
[2019-04-24 16:30] LABS: HEMATOCRIT 25.3 % (37.0-47.0); HEMOGLOBIN 8.3 gm/dL (12.0-15.0); MCH 31.6 pg (26.0-34.0); MCHC 32.8 g/dL (28.0-37.0); MCV 96.5 fL (80.0-100.0); PLATELET COUNT 112 thou/uL (150-400); RBC 2.62 mil/uL (4.20-5.00); RDW 16.7 % (10.5-14.5); WBC 18.9 thou/uL (4.0-11.0)
[2019-04-24 16:34] LABS: CALCIUM 8.1 mg/dL (8.5-10.1); CREATININE 1.2 mg/dL (0.6-1.0); POTASSIUM 4.5 mmol/L (3.5-5.1)
[2019-04-24 16:37] LABS: INR 1.3; PROTIME 13.2 Seconds (9.3-11.4)
[2019-04-24 17:07] LABS: ABSOLUTE NEUTROPHILS 15.5 thou/uL (1.4-8.2); NUCLEATED RBCS 8 /100WBC
[2019-04-24 17:08] LABS: ANISOCYTOSIS 2+; LARGE PLATELETS OCCASIONAL; POLYCHROMASIA OCCASIONAL
[2019-04-25 03:25] LABS: HEMOGLOBIN 8.2 gm/dL (12.0-15.0)
[2019-04-25 03:27] LABS: HEMATOCRIT 25.1 % (37.0-47.0); MCH 31.6 pg (26.0-34.0); MCHC 32.7 g/dL (28.0-37.0); MCV 96.7 fL (80.0-100.0); RBC 2.59 mil/uL (4.20-5.00); RDW 16.8 % (10.5-14.5); WBC 18.2 thou/uL (4.0-11.0)
[2019-04-25 03:33] LABS: CALCIUM 8.1 mg/dL (8.5-10.1); CREATININE 1.3 mg/dL (0.6-1.0); MAGNESIUM 2.4 mg/dL (1.8-2.4); POTASSIUM 4.7 mmol/L (3.5-5.1)
[2019-04-25 03:34] LABS: INR 1.3; PROTIME 13.6 Seconds (9.3-11.4)
[2019-04-25 04:15] VITALS: BP 140/74
[2019-04-25 08:00] VITALS: BP 141/57
--- NOTE | 2019-04-25 09:01 | EKG ---
[place] [address] [facility] [place] [address] ELECTROCARDIOGRAM REPORT Name: KENYETTA ETIENNE Room #: 206-P ADM IN M.R.#: [id number] ������������������ Admission: 04/14/19 ������������������ Attend Phys: Eben Morse MD Discharge: ������������������ Date of : 41 Report #: [id number] ����������������������������������������������������������������� [id number] THIS REPORT FOR: //name// [facility] Test Date: 2019-04-24 Test Time: 09:17:52 Pat Name: KENYETTA ALMANZA Department: Room: 206 P Gender: F Blow Torch Operator: Génesis NUR : 1940 Requested By: Jakob Choudhury Order Number: [id number] MD: Nathaniel Peguero Measurements Intervals [place] Rate: 88 P: [place]: QRS: 63 QRSD: 108 T: -31 QT: 393 QTc: 476 Interpretive Statements Atrial fibrillation Nonspecific T wave abnormality Compared to ECG 04/23/2019 07:35:02 Atrial fibrillation has replaced sinus rhythm Electronically Signed On 04-25-2019 9:01:48 CDT by Nathaniel Peguero [email or web address] ��������������������������������������������� <ELECTRONICALLY SIGNED> ���������������������������������������� By: Nathaniel Peguero MD, [facility] ��������������������������������������������� 06/03/10 901 6 6 Nathaniel Peguero MD, [facility] /EPI
[2019-04-25 12:02] VITALS: BP 119/57
[2019-04-25 16:00] VITALS: BP 119/62
[2019-04-25 19:48] VITALS: BP 133/70; BP 143/55
[2019-04-26 04:39] LABS: HEMOGLOBIN 8.2 gm/dL (12.0-15.0); PLATELET COUNT 120 thou/uL (150-400)
[2019-04-26 04:40] LABS: HEMATOCRIT 24.8 % (37.0-47.0); MCH 32.2 pg (26.0-34.0); MCHC 33.1 g/dL (28.0-37.0); MCV 97.3 fL (80.0-100.0); RBC 2.55 mil/uL (4.20-5.00); RDW 17.1 % (10.5-14.5); WBC 15.1 thou/uL (4.0-11.0)
[2019-04-26 04:45] VITALS: BP 138/79
[2019-04-26 04:48] LABS: CALCIUM 8.1 mg/dL (8.5-10.1); CREATININE 1.5 mg/dL (0.6-1.0); MAGNESIUM 2.4 mg/dL (1.8-2.4); POTASSIUM 4.4 mmol/L (3.5-5.1)
[2019-04-26 04:50] LABS: INR 1.4; PROTIME 14.4 Seconds (9.3-11.4)
[2019-04-26 05:26] LABS: ABSOLUTE NEUTROPHILS 12.1 thou/uL (1.4-8.2); NUCLEATED RBCS 4 /100WBC
[2019-04-26 05:27] LABS: ANISOCYTOSIS 1+; PLATELET ESTIMATE DECREASED; POLYCHROMASIA 1+
[2019-04-26 08:51] VITALS: BP 123/80
[2019-04-26] MEDS ORDERED: LIPITOR40 MG PO (12:39)
[2019-04-26] MEDS ORDERED: MIRALAX17 GM PO (12:39)
[2019-04-26] MEDS ORDERED: LASIX 40 MG TAB40 M2 PO (12:39)
[2019-04-26] MEDS ORDERED: NORVASC2.5 MG PO (12:39)
[2019-04-26] MEDS ORDERED: BAYER CHEWABLE81 MG PO (12:39)
[2019-04-26] MEDS ORDERED: MELATONIN3 MG PO (12:39)
[2019-04-26] MEDS ORDERED: LOPRESSOR50 PO (12:39)
[2019-04-26] MEDS ORDERED: FERREX 150 PLU1 EAC1 PO (12:39)
[2019-04-26] MEDS ORDERED: COUMADIN 3 MG TA3 M1 PO (12:39)
--- NOTE | 2019-04-26 14:33 | HC ---
[place] [address] CONSULTATION Name: KADEEM ALMANZAKENYETTA Capps Room #: 206-P [facility] IN M.R.#: [id number] Admission: 04/14/19 ������������������ Attend Phys: Eben Morse MD Discharge: 04/26/19 ������������������ Date of : 41 Report #: [id number] THIS REPORT FOR: //name// CC: Jack Morse DATE OF SERVICE: 04/19/2019 HISTORY OF PRESENT ILLNESS: This is a 78-year-old female patient who was seen by me last evening. I discussed the patient with the nurses and I talked to the Cardiothoracic services. Neurology consultation is being requested because the patient is having difficulty waking up after the Cardiothoracic Surgery. No history is available except in the records, which were reviewed. The patient had coronary artery disease and she underwent the surgery. She has been followed by Cardiothoracic Surgery as well as Cardiology. Record indicates the patient has a history of hypertension, hypercholesterolemia, depression, thyroid disease, renal artery stent. She had presented with shortness of breath. Record indicates she was living in assisted living. Record also indicates that she has a history of congestive heart failure. This is a relevant 14-point review of system that I can gather in this patient. PAST MEDICAL HISTORY: Positive for renal artery stent, hypertension. FAMILY HISTORY: Unavailable. SOCIAL HISTORY: She apparently does not smoke. NEUROLOGICAL EXAMINATION: Pretty limited. She opened her eyes once for me, but after that with repeated commands, she will not open her eyes. She will not follow any commands and that made the examination very difficult. She is running blood pressure of about 82/36, temperature is 100.2. Lab indicate that she is anemic. That is all the examination we could carry out in this patient. I got a stat EEG done in this patient. The EEG demonstrates pretty significant encephalopathy with triphasic waves. IMPRESSION: Clinically, the patient appeared to be pretty significantly encephalopathic. Her EEG also demonstrates pretty significant encephalopathy. She will need close monitoring and workup. It will be desirable to do a CT of the head in this patient, but the patient still has a chest tube and still has pacer wires. She is still hypotensive. So, the main question is whether the risk of taking her down is justifiable or not. We will reevaluate this patient today and see if she is becoming any better, but otherwise, we will talk to Dr. Choudhury about taking her down for CT scan sometime when it is considered safe. [address] [place] [address] CONSULTATION Name: KENYETTA ETIENNE Room #: 206-P [facility] IN .R.#: [id number] Admission: 04/14/19 ������������������ Attend Phys: Eben Morse MD Discharge: 04/26/19 ������������������ Date of : 41 Report #: [id number] We may also have to repeat EEG because this EEG was significantly abnormal, but if she starts waking up clinically, then we do not need to do much neurological workup. Dr. Cheema will follow up this patient with you from this morning and I will check out this patient with her. Time spent about 35 minutes and majority of that time were spent coordinating her care and we will try to reach the family also. ��������������������������������������������� <ELECTRONICALLY SIGNED> ���������������������������������������� By: Marco Florez MD ��������������������������������������������� 04/26/19 1433 0650 2242 Marco Florez MD /nt
--- NOTE | 2019-04-26 14:34 | EEG ---
[facility] [place] [address] ELECTROENCEPHALOGRAM Name: KENYETTA ETIENNE Room #: 206-P DIS IN M.R.#: [id number] ������������������ Admission: 04/14/19 ������������������ Attend Phys: Eben Morse MD Discharge: 04/26/19 ������������������ Date of : 42 Report #: [id number] ����������������������������������������������������������������� [id number] THIS REPORT FOR: //name// CC: Jack Morse DATE OF SERVICE: 04/19/2019 This patient is being evaluated for altered mental status. EEG was done by placing the electrode by standard 10-20 system of electrode placement. Both referential and sequential montages were used for recording. Background activity in this patient's EEG is about 5 Hz and 30 microvolt. This is a symmetrical activity. However, multiple triphasic waves are present in this patient's EEG. EEG is pretty slow bilaterally. Photic stimulation is unremarkable. IMPRESSION: This is a severely abnormal EEG demonstrating pretty prominent triphasic waves as well as slow activity. That finding is consistent with severe encephalopathy. Clinical correlation is recommended. ���������������������������������������� <ELECTRONICALLY SIGNED> ���������������������������������������� By: Marco Florez MD ��������������������������������������������� 04/26/19 1434 1925 6517 Marco Florez MD /nt
== END 2019-04-26 13:59 | DRG 216 ==
LOC: 2N 14:39 → TBA 14:39 → 2N 14:39 → TBA 04-18 07:31 → ICU 04-18 15:51 → 2N 04-22 16:11
PROVIDERS: Internal Medicine; Internal Medicine Cardiovascular Disease; Nurse Practitioner Acute Care; Nurse Practitioner Adult Health; Physician Assistant; Surgery Vascular Surgery; ADMIT Hospitalist
DX: I21.4 Non-ST elevation (NSTEMI) myocardial infarction (principal); I50.33 Acute on chronic diastolic (congestive) heart failure; G93.40 Encephalopathy, unspecified; E87.2 Acidosis; I48.92 Unspecified atrial flutter; D62 Acute posthemorrhagic anemia; N17.9 Acute kidney failure, unspecified; I11.0 Hypertensive heart disease with heart failure; E78.00 Pure hypercholesterolemia, unspecified; F32.9 Major depressive disorder, single episode, unspecified; E03.9 Hypothyroidism, unspecified; F41.9 Anxiety disorder, unspecified; K21.9 Gastro-esophageal reflux disease without esophagitis; I35.0 Nonrheumatic aortic (valve) stenosis; E78.5 Hyperlipidemia, unspecified; E87.6 Hypokalemia; I48.91 Unspecified atrial fibrillation; D69.6 Thrombocytopenia, unspecified; E86.1 Hypovolemia; S30.1XXA Contusion of abdominal wall, initial encounter; X58.XXXA Exposure to other specified factors, initial encounter; Y93.89 Activity, other specified; Z95.820 Peripheral vascular angioplasty status with implants and grafts; Z88.1 Allergy status to other antibiotic agents; Z88.0 Allergy status to penicillin; Z88.8 Allergy status to other drugs, medicaments and biological substances; Z79.82 Long term (current) use of aspirin; Z79.899 Other long term (current) drug therapy; Z90.710 Acquired absence of both cervix and uterus; Z86.711 Personal history of pulmonary embolism; Z79.01 Long term (current) use of anticoagulants; Z90.49 Acquired absence of other specified parts of digestive tract; Z82.49 Family history of ischemic heart disease and other diseases of the circulatory system; Z88.2 Allergy status to sulfonamides; Y92.89 Other specified places as the place of occurrence of the external cause; Y99.8 Other external cause status
CPT/HCPCS: 10078; 10081; 27000; 47000; 47001; 47002; 47297; 47335; 48888; 50010; 50011; 50249; 50409; 50456; 50497; 50498; 50668; 51301; 52131; 52259; 52314; 53327; 53358; 54118; 55415; 56455; 56524; 56525; 56526; 56527; 56528; 56531; 56534; 56668; 56760; 56898; 57080; 57081; 57082; 57093; 57116; 57222; 62110; 62950; 65003; 65020; 65047; 65090; 65135; 83006; 85076

== ENCOUNTER 2019-04-28 17:39 | Inpatient (IN) | payer OTHER ==
[2019-04-28] VITALS (10 sets, daily range): BP systolic 95–130; BP diastolic 34–46
[~2019-04-28] VITALS: Ht 165.1 cm; Wt 77.6 kg
--- NOTE | ~2019-04-28 | HC ---
[facility] [place] [address] CONSULTATION Name: KADEEM ALMANZAKENYETTA Génesis Room #: 352-P ADM IN M.R.#: [id number] Admission: 04/28/19 ������������������ Attend Phys: Rebecca Olivera Discharge: ������������������ Date of : 41 Report #: [id number] THIS REPORT FOR: //name// CC: Jack Olivera DATE OF SERVICE: 05/13/2019 SUBJECTIVE: The patient is sleeping. She has not been up today as per nurse. No signs of bleeding. OBJECTIVE: VITAL SIGNS: Blood pressure 117/59, heart rate is 84, temperature 99.1, respirations 16, not dyspneic. EXTREMITIES: Bluish discoloration of fingertips and toes. ABDOMEN: Soft. LABORATORY DATA: White count 10.5, hemoglobin 7.6, MCV 102, platelets 104. 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 Platelets stable. ____. Continue ____ as per Dr. Bach's recommendation. ��������������������������������������������� ���������������������������������������� By: ��������������������������������������������� 1847 49 Noah Razo MD /nt
[~2019-04-28 17:39] MED LIST: ABILIFY10 MG PO; AMLODIPINE BESYL5 M1 PO; APAP650 PO; ASPIRIN325 PO; ATIVAN0.5 MG PO; BAYER CHEWABLE81 MG PO; BUMETANIDE0.25 MG/1 PO; COUMADIN 3 MG TA3 M1 PO; COZAAR 25 MG TA25 M2 PO; CYMBALTA60 MG PO; DICLOFENAC SOD100 G1; DIPHENHIST50 MG PO; FERREX 150 PLU1 EAC1 PO; HYDROXYCHLOROQ200 M1 PO; LASIX 40 MG TAB40 M2 PO; LIPITOR40 MG PO; LOPRESSOR50 PO; LOSARTAN-HCTZ1 EAC1 PO; MELATONIN3 MG PO; MIRALAX17 GM; MIRALAX17 GM PO; NAPROSYN500 MG PO; NAPROXEN250 MG PO; NEURONTIN 300M300 M2 PO; NORCO 7.5-3251 EACH PO; NORVASC2.5 MG PO; POTASSIUM CHLO10 MEQ PO; PROPRANOLOL 20M20 M1 PO; PROTONIX40 M1 PO; SYNTHROID112 MC1 PO; ZANTAC 150MG T150 MG PO; ZYLOPRIM300 MG PO
[2019-04-28 20:16] LABS: BE(vivo) -5.1 mmol/L (-2 to +3); HCO3 19.7 mmol/L (22.0-26.0); PCO2 35.2 mmHg (35.0-45.0); PO2 237.7 mmHg (80.0-100.0); pH 7.366 (7.360-7.450); sO2 99.5 % (92.0-98.0)
[2019-04-28 23:22] LABS: HEMATOCRIT 28.4 % (37.0-47.0); MCH 32.5 pg (26.0-34.0); MCHC 31.7 g/dL (28.0-37.0); RBC 2.76 mil/uL (4.20-5.00); RDW 17.6 % (10.5-14.5); WBC 15.2 thou/uL (4.0-11.0)
[2019-04-28 23:24] LABS: MCV 102.7 fL (80.0-100.0)
[2019-04-28 23:35] LABS: PROTIME 41.6 Seconds (9.3-11.4)
[2019-04-29] VITALS (80 sets, daily range): BP systolic 77–152; BP diastolic 22–127
--- NOTE | 2019-04-29 00:10 | NUR ---
Pt transferred to ICU room 243 from CCU at 2030. Monitor sinus rhythm with 1st degree AVB. Pt very lethargic, pupils 2 and sluggish. Extreme bruising all four extremities and left hip area. Pt's left toes and right hand purple, cool to touch. Able to palpate 1+ pulses left wrist and right foot. Able to dopple pulses right radial and left pedal. Difficult to get O2 sat on pt due to poor circulation. ABG's are within acceptable parameters. Pt arrived on 100% NRB mask but pO2 > 200 per ABG so pt titrated down to 40% venti mask. Devaughn Rivas HEALTH THERAPIST here to see pt 2100. Upper extremity doppler done right arm. Dr. Choudhury here at 2240.
--- NOTE | 2019-04-29 02:48 | NUR ---
Numerous IV attempts since pt arrival by ICU staff, house mover supervisor, and ED staff. Right AC #20 finally acheived using ultrasound. IVF started as ordered. IV patent though ED nurse was unable to thread it completely,
[2019-04-29 05:05] LABS: HEMATOCRIT 26.4 % (37.0-47.0); HEMOGLOBIN 8.4 gm/dL (12.0-15.0); MCH 32.7 pg (26.0-34.0); MCHC 31.9 g/dL (28.0-37.0); MCV 102.6 fL (80.0-100.0); RBC 2.58 mil/uL (4.20-5.00); RDW 18.3 % (10.5-14.5); WBC 15.7 thou/uL (4.0-11.0)
[2019-04-29 05:24] LABS: CREATININE 2.7 mg/dL (0.6-1.0); POTASSIUM 4.9 mmol/L (3.5-5.1)
[2019-04-29] MEDS ORDERED: VOLTAREN GEL 1100 G2 TOP ×3 (06:04→06:08)
--- NOTE | 2019-04-29 06:23 | NUR ---
END OF SHIFT SUMMARY: Pt remains confused, impulsive, frequently restless. Oriented to self only. Moves all extremities, exhibits more extremity strength than when first admitted. Right hand and left foot remain swollen and purple but able to dopple pulses in both. All other pulses +1. After many attempts, RN from ED able to establish IV in LAC. Pt receiving NS @ 75 cc/hr as ordered and urine output slowly improving. Aquacel drsg applied to sternal incision as per order Dr. Choudhury. TARUN drsg left popliteal area remain intact. Aquacel drsg placed over lower left leg open area. Pt remains on 3 L nasal cannula, O2 sat 94-97%.
--- NOTE | 2019-04-29 10:53 | NUR ---
VASCULAR ACCESS CONSULTED FOR PICC. WHEN ASSESSING PT, RIGHT HAND TO WRIST PURPLR,EDEMATOUS AND COLD. L HAND DUSKY. UPPER ARMS FLUID FILLED UNABLE TO FIND COMPRESSABLE VESSELS. PLATELETS LOW ,INR HIGH SO UNABLE TO SAFELY PLACE CVAD. NO PIV ACCESS SEEN. RN CALLING DR PANIAGUA TO NOTIFY THAT IR SHOULD BE CALLED FOR PLACEMENT.
--- NOTE | 2019-04-29 12:09 | 2DMMODE ---
[facility] [address] [place] [address] 2 D/M-MODE ECHOCARDIOGRAM Name: KENYETTA ETIENNE Room #: 243-P ADM IN M.R.#: [id number] ������������� Admission: 04/28/19 ������������� Attend Phys: Rebecca Head Discharge: ��� ������������� ��� Date of : 42 Date of Service: 04/29/19 1209 �� Report #: [id number] �������� ��������������������������������������������[id number] THIS REPORT FOR: //name// APPROVED REPORT Study performed: 04/29/2019 10:00:24 EXAM: Comprehensive 2D, Doppler, and color-flow Echocardiogram Patient Location: ICU Room #: 243 Status: on-call BSA: 1.91 HR: 96 bpm BP: 136/67 mmHg Other Information Study Quality: Technically Difficult Technically limited study due to post surgical bandages. Indications Congestive Heart Failure Atrial Fibrillation Hypertension/HDD recent AVR (bioprosthetic valve) and CABG 2D Dimensions RVDd: 33.53 mm IVSd: 11.91 (7-11mm) LVOT Diam: 18.08 (18-24mm) LVDd: 40.33 mm PWd: 9.85 (7-11mm) LVDs: 27.08 (25-40mm) Aortic Root: 25.08 mm IVC: 26.00 mm Volumes Left Atrial Volume (Systole) Single Plane 4CH: 82.35 mL Single Plane 2CH: 169.29 mL LA ESV Index: 63.00 mL/m2 Aortic Valve AoV Peak Jacoby.: 3.16 m/s AO Peak Gr.: 40.05 mmHg LVOT Max P.21 mmHg AO Mean Gr.: 20.50 mmHg AO V2 Mean: 2.07 m/s LVOT Max V: 0.90 m/s AO V2 VTI: 65.80 cm [facility] [address] [place] [address] 2 D/M-MODE ECHOCARDIOGRAM Name: KENYETTA ETIENNE Room #: 243-P [facility] IN ..#: [id number] ������������� Admission: 04/28/19 ������������� Attend Phys: Rebecca Head Discharge: ��� ������������� ��� Date of : 42 Date of Service: 04/29/19 1209 �� Report #: [id number] �������� ��������������������������������������������[id number] CARMEN Vmax: 0.80 cm2 Mitral Valve MV Decel. Time: 151.29 ms MV E Max Jacoby.: 1.60 m/s IVRT: 55.36 ms Pulmonary Valve PV Peak Jacoby.: 1.16 m/s PV Peak Gr.: 5.38 mmHg Tricuspid Valve TR Peak Jacoby.: 3.20 m/s RAP Estimate: 15.00 mmHg TR Peak Gr.: 40.92 mmHg PA Pressure: 55.00 mmHg Left Ventricle The left ventricle is normal size. There is normal LV segmental wall motion. There is normal left ventricular wall thickness. The left ventricular systolic function is normal. The left ventricular ejection fraction is within the normal range. LVEF is 55%. This study is not technically sufficient to allow evaluation of the LV diastolic function. Right Ventricle The right ventricle is normal size. Right ventricle is mildly hypokinetic. Atria Left atrium is dilated. Right atrium is moderately dilated. Aortic Valve Bioprosthetic aortic valve is not well visualized. No aortic regurgitation is present. Maximum pressure gradient of 36 mmHg and mean pressure gradient of 19 mmHg. Mitral Valve Mitral valve leaflets are mildly thickened. Moderate mitral annular calcification. Moderate mitral regurgitation. No evidence of mitral valve stenosis. Tricuspid Valve The tricuspid valve is normal in structure. Moderate to severe tricuspid regurgitation. PAP is estimated at 50 Pulmonic Valve Pulmonic valve is not well visualized. Trace to mild pulmonic [facility] [address] [place] [address] 2 D/M-MODE ECHOCARDIOGRAM Name: KENYETTA ETIENNE Room #: 243-P [facility] IN .R.#: [id number] ������������� Admission: 04/28/19 ������������� Attend Phys: Rebecca Head Discharge: ��� ������������� ��� Date of : 42 Date of Service: 04/29/19 1209 �� Report #: [id number] �������� ��������������������������������������������[id number] regurgitation. Great Vessels The aortic root is normal in size. IVC is dilated and collapses <50% with inspiration. Pericardium There is no pericardial effusion. <Conclusion> The left ventricular systolic function is normal. There is normal LV segmental wall motion. LVEF 55%. Both atria are dilated Bioprosthetic aortic valve is not well visualized. No aortic insufficiency Maximum pressure gradient of 36 mmHg and mean pressure gradient of 19 mmHg. Mitral valve leaflets are mildly thickened. Moderate mitral annular calcification. Moderate mitral regurgitation. Moderate to severe tricuspid regurgitation. Pulmonary artery pressure estimated at 50mmHg There is no pericardial effusion. ��������������������������������������������� <ELECTRONICALLY SIGNED> ���������������������������������������� By: Nathaniel Peguero MD, [facility] ��������������������������������������������� 04/29/19 1209 08 08 Nathaniel Peguero MD, FACC /INF
--- NOTE | 2019-04-29 19:26 | NUR ---
ASSUMED CARE @ 0700 04/29/19, PT ASSESSMENTS AND VSS COMPLETE PER ICU PROTOCOL, PT ALERT TO SELF ONLY, PT CONFUSED. PT IS IN SR AT THIS TIME BUT WAS IN AFIB THIS AM, PT HAS HX OF SEVERE PAD WITH VASCULAR ISSUES. BLE VENOUS ULTRASOUND DONE TODAY NEG FOR DVT, ECHO DONE TODAY LVEF 55%. CENTRAL LINE PLACED IN SUB C BY DR PANIAGUA, DONE MEDICAL NECCESSITY, CONSENT SIGNED BY DR PANIAGUA NO COMPLICATIONS NOTED. PT ON 3L OF NC. NO SIGNS OF SOA. PT ON HEART HEALTHY DIET, LOW APETITE NOTED, ACHS BLOOD SUGARS, BS STABLE. KOHLER IN PLACE, OUTPUT BETTER THIS SHIFT, CONCERNS VOICED TO DR ARELLANO AND ARCELIA ABOUT RENAL CONSULT. PLAN OF CARE - CONT TO MONITOR.
[2019-04-30] VITALS (20 sets, daily range): BP systolic 118–145; BP diastolic 42–87
--- NOTE | 2019-04-30 00:20 | NUR ---
Pt is noted to be in A-fib,rate 100's. BP stable. Notified C D STRIPPER compensation programs manager ,order received for lopressor 5 mg IV x 1.
[2019-04-30 04:53] LABS: HEMOGLOBIN 8.3 gm/dL (12.0-15.0)
[2019-04-30 04:55] LABS: HEMATOCRIT 25.8 % (37.0-47.0); MCH 32.6 pg (26.0-34.0); MCHC 32.1 g/dL (28.0-37.0); MCV 101.5 fL (80.0-100.0); RDW 17.9 % (10.5-14.5); WBC 14.6 thou/uL (4.0-11.0)
[2019-04-30 04:57] LABS: PROTIME 47.2 Seconds (9.3-11.4)
[2019-04-30 05:02] LABS: ALBUMIN 2.8 g/dL (3.4-5.0); CALCIUM 7.9 mg/dL (8.5-10.1); CREATININE 1.9 mg/dL (0.6-1.0); MAGNESIUM 2.5 mg/dL (1.8-2.4); POTASSIUM 4.7 mmol/L (3.5-5.1); TOTAL BILIRUBIN 3.7 mg/dL (<0.1-1.0); TOTAL PROTEIN 5.2 g/dL (6.4-8.2)
[2019-04-30 05:08] LABS: INR 4.6
[2019-04-30 05:27] LABS: RBC 2.55 mil/uL (4.20-5.00)
--- NOTE | 2019-04-30 05:57 | NUR ---
Pt is more awakes and very confused this am. She is being very restless, impulsive and not aware of her safety. Unable to re-orienting her. She is constantly try climb out off bed. She is on high risk of falls and high risk of bleeding due to elevated INR and low platelets. Avoid placing her on restraint due to poor circulation on both hands/fingers. Spoke with TELETRAY OPERATOR institutional aide concerning of above; order sitter for pt. Will notify hothouse worker per plan of cares.
[2019-04-30 12:31] LABS: URINE BLOOD 3+ (Negative); URINE CLARITY CLEAR; URINE COLOR YELLOW; URINE GLUCOSE-RANDOM* NEGATIVE (Negative); URINE KETONES NEGATIVE (Negative); URINE PROTEIN (DIPSTICK) 1+ (Negative)
[2019-04-30 12:33] LABS: URINE LEUKOCYTES-REFLEX 3+ (Negative); URINE NITRITE-REFLEX POSITIVE (Negative)
[2019-04-30 12:34] LABS: ICTOTEST (BILI CONFIRMATORY) Negative (Negative); URINE BILIRUBIN NEGATIVE (Negative)
[2019-04-30 12:37] LABS: CASTS None Seen /LPF (None Seen); CRYSTALS None Seen /LPF (None Seen); SQUAMOUS None Seen /LPF (0-3)
--- NOTE | 2019-04-30 15:44 | NUR ---
ASSUMED CARE @ 0700 04/30/19, PT ASSESSMENTS AND VSS COMPLETE PER ICU PROTOCOL. PT ALERT TO SELF ONLY, PT ABLE TO FOLLOW SIMPLE COMMANDS, MORPHINE GIVEN FOR PAIN DURING THE SHIFT. PT ON AFIB, ARGROTOBAN STARTED TODAY FOR SUSPECTED HIT, APTT Q2H, WILL CONTINUE TO FOLLOW PROTOCOL. PT ON RA, SATS OK, PROBE ON FOREHEAD DUE TO VASCULAR ISSUES. PT ON PUREED DIET, VERY LOW APETITE OBSERVED. KOHLER IN PLACE, OU OK. 3 RINGS CUT OFF TODAY DUE TO OCCLUSION OF FINGERS, CONSENT GOTTEN FOR SON VERIFIED BY TWO NURSES, Emely AND AMLKA MENDEZ. REPORT GIVEN TO TABITHA MENDEZ. PLAN OF CARE - CONT TO MONITOR.
[2019-04-30 19:14] LABS: ALBUMIN 2.8 g/dL (3.4-5.0); CALCIUM 7.9 mg/dL (8.5-10.1); CREATININE 1.5 mg/dL (0.6-1.0); TOTAL BILIRUBIN 4.7 mg/dL (<0.1-1.0)
--- NOTE | 2019-04-30 19:21 | NUR ---
ASSUMED CARE OF PATIENT AT 1400. PT ASSESSMENTS AND VS COMPLETE. PT ALERT TO SELF AND ABLE TO FOLLOW SIMPLE COMMANDS. PATIENT VERBALIZED PAIN IN HANDS, MORPHINE GIVEN WITH PATRIAL RELIEF. PT IN AFIB, ARGATROBAN INFUSING WITH TWO HOURLY APTT DRAWN. PROTOCOL BEING FOLLOWED. DR. PANIAGUA CALLED WITH THIRD RESULT WHICH WAS OUT OF THERAPEUTIC RANGE AT 1800. CMP ORDERED AND RESULTS ARE TO BE CALLED BACK TO DR BY NIGHT NURSE. PT ON PUREED DIET, HOWEVER DUE TO LOW APPETITE, PATIENT IS UNINTERESTED IN EATING. EVENING BLOOD SUGAR AT 90. PATIENT IS TO CONTINUE WITH POC.
[2019-05-01] VITALS (27 sets, daily range): BP systolic 121–151; BP diastolic 39–96
[2019-05-01 04:01] LABS: MCHC 31.7 g/dL (28.0-37.0); RBC 2.48 mil/uL (4.20-5.00)
[2019-05-01 04:04] LABS: ABSOLUTE RETIC COUNT 0.2231 10^6/uL; HEMATOCRIT 25.9 % (37.0-47.0); HEMOGLOBIN 8.2 gm/dL (12.0-15.0); MCV 104.2 fL (80.0-100.0); OBSERVED RETIC COUNT 8.98 % (0.6-2.6); PLATELET COUNT 59 thou/uL (150-400); RDW 19.4 % (10.5-14.5); WBC 16.8 thou/uL (4.0-11.0)
[2019-05-01 05:08] LABS: ABSOLUTE NEUTROPHILS 14.8 thou/uL (1.4-8.2); NUCLEATED RBCS 6 /100WBC
[2019-05-01 05:09] LABS: ANISOCYTOSIS 2+; MACROCYTES 1+; PLATELET ESTIMATE DECREASED
[2019-05-01 05:10] LABS: POLYCHROMASIA 2+
--- NOTE | 2019-05-01 06:00 | NUR ---
PT REMAINS VERY DROUSY BUT AROUSES EASILY AND DOES FOLLOW SIMPLE COMMANDS O2 SAT 94 % ON ROOM AIR. RIGHT HAND LOOKS MUCH WORSE THIS AM DARK PURPLE WITH BLISTERS AND VERY SWOLLEN. 500 CC UO THIS SHIFT. CONT TO DOPPLE ALL PULSES. LUNGS DIMINISED. BATHED. REMAINS ON ARGATROBAN GTT AT 0.08 MCG APPT THERAPUTIC. BILAT TOES AND LEFT HAND FINGERS PURPLE AND COOL TO TOUCH WILL CONT TO MONITOR. BASTHED. WILKL CONT TO MONITOR.
--- NOTE | 2019-05-01 06:00 | NUR ---
PT IS DROUSY AROUSES EASILY BARELY SPEAKS BUT FOLLOWS SIMPLE COMMANDS SHANNAN CAI. RIGHT HAND LOOK WORSE VERY SWOLLEN AND PURPLE. PULSES DOPPLED. REMAINS IN AFIB RATE 110. SBP 140/[address]IFT[address] RICHARD MENDEZ NOTIFIED OF CONSULT TODAY. REMAINS ON ARGATROBAN GTT AT 0.08 MCG APTT THERAPUTIC. BATHED. WILL CONT TO MONBITOR CLOSELY.
[2019-05-01 07:11] LABS: ALBUMIN 2.8 g/dL (3.4-5.0); CALCIUM 7.8 mg/dL (8.5-10.1); CREATININE 1.5 mg/dL (0.6-1.0); POTASSIUM 5.2 mmol/L (3.5-5.1); TOTAL BILIRUBIN 4.8 mg/dL (<0.1-1.0); TOTAL PROTEIN 5.1 g/dL (6.4-8.2)
--- NOTE | 2019-05-01 07:54 | HC ---
[facility] [place] [address] [address] [place] [address] CONSULTATION Name: KADEEM ALMANZAKENYETTA Capps Room #: 243-P ADM IN M.R.#: [id number] Admission: 04/28/19 ������������������ Attend Phys: Rebecca Olivera Discharge: ������������������ Date of : 42 Report #: [id number] THIS REPORT FOR: //name// CC: Jack Olivera DATE OF SERVICE: 04/28/2019 HISTORY OF PRESENT ILLNESS: We were asked to see the patient. The patient is known to me from her aortic valve and coronary artery bypass surgery nearly 2 weeks ago. The patient was just discharged to a correction facility in [place], [place] this week and now has returned with nonspecific problems. PAST MEDICAL HISTORY: Significant for calcific aortic stenosis, coronary artery disease. The patient had atrial fibrillation at a slow rate during the last admission and was discharged on warfarin for both the valve and atrial fibrillation. The patient has also been treated for hypertension and fluid retention. The patient takes levothyroxine at home. Has sleep apnea. ALLERGIES: INCLUDE ALPRAZOLAM, CIPROFLOXACIN, ERYTHROMYCIN, IODINE, MEPERIDINE, PENICILLIN, PROPOXYPHENE, ROPINIROLE AND SULFA. CURRENT MEDICATIONS: Include iron, warfarin, atorvastatin, metoprolol, amlodipine, aspirin, furosemide and melatonin. REVIEW OF SYSTEMS: Not obtainable as the patient is mildly obtunded. PHYSICAL EXAMINATION: GENERAL: The patient is lying in bed, in no obvious distress. Moves all extremities, but is not fully cooperative or conscious. VITAL SIGNS: Heart rate 58, sinus rhythm. O2 sat is reading 86%, but blood gases show much better pO2 and the patient is known to have had problems with O2 readings with the O2 sat monitor. Respiratory rate 17, blood pressure 115/38. HEENT: Pupils are small, reactive, no arcus. No icterus. NECK: No mass, no bruit. CHEST: Clear. HEART: Rhythm regular, no murmurs audible. ABDOMEN: Soft. EXTREMITIES: Left leg has saphenous vein harvest site. Left thigh is mottled from old ecchymosis related to the venous harvest and this purplish color has dissected distally. Feet are equal in temperature. Calves are warm bilaterally. Doppler signals are audible in both dorsalis pedis and posterior tibial arteries on the right and left, and the patient has no complaints of lower extremity discomfort. It seems that there was a concern about "femoral occlusion," but it was not [address] [address] CONSULTATION Name: KENYETTA ETIENNE Room #: 243-P [facility] IN .R.#: [id number] Admission: 04/28/19 ������������������ Attend Phys: Rebecca Olivera Discharge: ������������������ Date of : 42 Report #: [id number] specified as to what vessel was being the vessel of concern (artery or vein). On my examination, there is no evidence of arterial occlusive disease and the purplish color is related to the saphenous vein harvest and the fascial plane dissection of the previous hematoma. The patient is exquisitely sensitive to anesthetic and postoperative analgesics and did not wake up for the first 3 days after surgery. It appears that she was on 7.5 of [place] at the senior care, which exceeds the amount that she was getting after her surgery for discomfort in the hospital. I suspect that this is in part responsible for her sedation. In addition, the patient's BUN and creatinine are markedly elevated and I think the patient is probably dehydrated. This is not the hemodynamic or electrolyte state in which she went to the other institution. We will follow along with you, but I suspect that rehydration and a drug holiday will be appropriate. We also note the INR is 6, I suspect this is in part related to poor nutrition, lasting effects of the amiodarone and Coumadin dose. Obviously, the Coumadin will need to be held. Thank you for the consultation. ��������������������������������������������� <ELECTRONICALLY SIGNED> ���������������������������������������� By: Jakob Choudhury MD ��������������������������������������������� 05/01/19 0754 [id number] 14 Jakob Choudhury MD /nt
[2019-05-01 09:38] LABS: DIRECT BILIRUBIN 2.7 mg/dL (<0.1-0.3); TOTAL BILIRUBIN 4.5 mg/dL (<0.1-1.0)
--- NOTE | 2019-05-01 09:50 | NUR ---
Nutrition: pt admit with CHF, coagulopathy, recent CABG. Wound risk indicated which per rounds is blisters/swelling on hand due to PAD, also Leg leg vascular wound. Poor appetite on pureed diet. Refusing some pills per nsg and confused. Will trial magic cup or ensure pudding on trays. No weight loss per hx. Follow POC and for improved intake, mentation.
[2019-05-01 11:12] LABS: % SATURATION 21 % (20-39); IRON 39 ug/dL (50-170); TIBC 182 ug/dL (250-450)
[2019-05-01 12:10] LABS: HEMATOLOGY COMMENTS Note: (()); HEMOGLOBIN 7.8 g/dL (11.1-15.9)
--- NOTE | 2019-05-01 16:45 | NUR ---
DCP PUT AMBULANCE FORM FOR TRANSPORTATON ON FROMT OF PT'S CHART IF DICHARGE TO [facility] THIS EVENING FAX FORM TO [phone] AND WAIT FOR CONFIRMATION AND CALL [phone] AND ARRANGE TRANSPORT.
--- NOTE | 2019-05-01 18:34 | NUR ---
ASSUMED CARE OF PT AT 0645. LABS DRAWN PER GI, RENAL AND HEM REQUEST. WORKING UP FOR HIT. UNSURE WHAT INTERVENTIONS TO DO. DR EDWARD AND ARCELIA WORKING WITH [facility] FOR TX, IF PROSTAGLANDIN INFUSION REQUIRED. PT LETHARGIC AND CONFUSED. DRESSINGS CHANGED BY CTS PA. NO PROGRESS TOWARDS PLAN OF CARE.
[2019-05-01 20:08] LABS: IgG 866 mg/dL (700-1600)
[2019-05-02] VITALS (24 sets, daily range): BP systolic 98–164; BP diastolic 51–89
--- NOTE | 2019-05-02 04:48 | NUR ---
ASSUMED CARE OF PT. AT 1900. PT. IS MOANING AND THRASHING PATRICK TO PAIN. PATRIOT MISSI[employer] DEF[employer] ARTILLERY CALLED TO CHANGE DOSE OF MORPHINE, NO NEW ORDERS GIVEN. INCREASED NECROSIS TO EXTREMITIES NOTCIED THROUGHOUT SHIFT. HEART RHYTHM CHANGED TO AFLUTTER AT A CONTROLLED RATE. VITAL SIGNS STABLE. PT. WILL NOT BE TRANSFERRED TO . PLAN OF CARE IS TO MONITOR AND CONTROL PAIN AND TO TALK WITH DOCTORS FOR CHANGE IN PLAN OF GOALS/OUTCOMES FOR PT. ASSESSMENTS AND VITAL SIGNS CHARTED. WILL CONTINUE TO MONITOR.
[2019-05-02 05:47] LABS: HEMOGLOBIN 7.8 gm/dL (12.0-15.0)
[2019-05-02 05:48] LABS: HEMATOCRIT 24.6 % (37.0-47.0); MCHC 31.7 g/dL (28.0-37.0); MCV 104.1 fL (80.0-100.0); RBC 2.37 mil/uL (4.20-5.00); RDW 21.2 % (10.5-14.5); WBC 14.2 thou/uL (4.0-11.0)
[2019-05-02 06:01] LABS: PROTIME 82.3 Seconds (9.3-11.4)
[2019-05-02 06:07] LABS: ALBUMIN 2.6 g/dL (3.4-5.0); CALCIUM 7.7 mg/dL (8.5-10.1); CREATININE 1.3 mg/dL (0.6-1.0); MAGNESIUM 2.5 mg/dL (1.8-2.4); POTASSIUM 4.1 mmol/L (3.5-5.1); TOTAL BILIRUBIN 3.6 mg/dL (<0.1-1.0); TOTAL PROTEIN 5.2 g/dL (6.4-8.2)
[2019-05-02 06:11] LABS: APTT 89.3 Seconds (24.5-32.8)
--- NOTE | 2019-05-02 07:58 | NUR ---
late entry: yesterday Dr Larios approached casemgt with plan to transfer to . Sp with transfer team. Faxed pertinent information they requested. [facility] and transfer form on chart. Sp with son Miguel who was in agreement to transfer. updated VANESSA Gutierrez of plan. Today sp with Rn who reports [facility] declined due to they would provide same care to patient.
[2019-05-02 10:08] LABS: HAV IgM AB (ANTI-HAV IgM) Negative (Negative); HEPATITIS B SURFACE AG Negative (Negative); HEPATITIS C VIRUS AB 0.2 (0.0-0.9)
[2019-05-02 13:07] LABS: CERULOPLASMIN 30.3 mg/dL (19.0-39.0)
[2019-05-02 14:08] LABS: URINE BILIRUBIN NEGATIVE (Negative); URINE BLOOD 3+ (Negative); URINE CLARITY CLEAR; URINE COLOR YELLOW; URINE GLUCOSE-RANDOM* NEGATIVE (Negative); URINE KETONES NEGATIVE (Negative); URINE LEUKOCYTES TRACE (Negative); URINE NITRITE NEGATIVE (Negative); URINE PROTEIN (DIPSTICK) TRACE (Negative)
[2019-05-02 14:13] LABS: CASTS None Seen /LPF (None Seen); CRYSTALS None Seen /LPF (None Seen); SQUAMOUS 0-3 Few /LPF (0-3); URINE RBC >20 Many /HPF (0-2); URINE WBC 0-5 Rare /HPF (0-5)
[2019-05-02 14:14] LABS: BACTERIA 1-9 Few /HPF (None Seen)
--- NOTE | 2019-05-02 15:05 | NUR ---
patient recent dc from [facility] 04/26/19 to [facility] post acute care. Patient readmitted 04/28/19 with necrosis. Prior to skilled patient resides in [place] at [facility] across street from [facility]. Patients son Miguel updated no plan for [facility] at this time per RN. casemgt following for dc planning.
--- NOTE | 2019-05-02 15:13 | NUR ---
WOUND CONSULT; ROUNDING WITH DR MELL CEJA AND CHEMO OSPINA SILICA SPRAY MIXER. THIS PATIENT HAS SKIN CHANGES TO THE FINGERS/HANDS BILATERALLY, THE RIGHT ARM AND BILATERAL TOES WHICH SEEN TO BE ADVANCING. UNKNOWN ETIOLOGY AT THIS MOMENT. SKIN IS INTACT BUT DISCOLORED WITH AN ISCHEMIC PRESENTATION. THERE ARE SURGICAL WOUNDS TO THE CHEST AND LLE RELATED TO CARIDOTHERASIC SURGERY. NO RECOMMENDATIONS AT THIS TIME. WE WILL FOLLOW WITH ANY AND ALL POSSIBLE TREATMENT OF DRESSINGS NEEDED. RN PRESENT
--- NOTE | 2019-05-02 19:00 | NUR ---
SHIFT SUMMARY RT HAND, WRIST, AND LEFT FINGERS, RT TOES AND LEFT TOES AND DISTAL FOOT REMAIN PURPLISH BLACKISH IN COLOR, PULSES UNCHANGED AND RT ARM IS WEEPING SEROUSSANG DRAINAGE. AFEBRILE. C/O PAIN WITH LITTLE RELIEF FROM MORPHINE Q4H DR PANIAGUA INFORMED CONCERNING PAIN MANAGEMENT, CHOKING ON PUDDING AND ELEVATED BLOOD SUGARS. ORDERS NOTED. O2 SAT IN THE UPPER 90'S AND O2 AT 3L/NC REMAINS NPO UNTIL SWALLOW STUDY. FAMILY CALLED IN AND UPDATED ON PATIENT STATUS, REASSURANCE GIVEN TO PATIENT AND FAMILY.
[2019-05-03] VITALS (24 sets, daily range): BP systolic 108–169; BP diastolic 55–82
[2019-05-03 05:06] LABS: PROTIME 80.3 Seconds (9.3-11.4)
[2019-05-03 05:08] LABS: HEMATOCRIT 26.4 % (37.0-47.0); HEMOGLOBIN 8.3 gm/dL (12.0-15.0); MCH 33.1 pg (26.0-34.0); MCHC 31.4 g/dL (28.0-37.0); MCV 105.3 fL (80.0-100.0); PLATELET COUNT 61 thou/uL (150-400); RBC 2.51 mil/uL (4.20-5.00); RDW 25.3 % (10.5-14.5); WBC 14.1 thou/uL (4.0-11.0)
[2019-05-03 05:11] LABS: INR 7.8
[2019-05-03 05:12] LABS: APTT 127.7 Seconds (24.5-32.8)
[2019-05-03 05:16] LABS: ALBUMIN 2.6 g/dL (3.4-5.0); CALCIUM 7.6 mg/dL (8.5-10.1); CREATININE 1.1 mg/dL (0.6-1.0); MAGNESIUM 2.4 mg/dL (1.8-2.4); POTASSIUM 4.4 mmol/L (3.5-5.1); TOTAL BILIRUBIN 2.8 mg/dL (<0.1-1.0); TOTAL PROTEIN 5.7 g/dL (6.4-8.2)
[2019-05-03 06:47] LABS: NUCLEATED RBCS 3 /100WBC
[2019-05-03 06:48] LABS: ANISOCYTOSIS 3+; MACROCYTES 2+; PLATELET ESTIMATE DECREASED; POIKILOCYTOSIS 1+
--- NOTE | 2019-05-03 08:35 | NUR ---
ASSUMED CARE OF PT. AT 1900. PT. CONTINUES TO MOAN IN PAIN, GIFT PACKER CHANGED PAIN MEDICATION ORDER. PT. IS MORE ALERT AND CAN ANSWER SIMPLE YES AND NO QUESTIONS FOR THE MOST PART AND RESPONDS TO NAME. PT. REMAINS HEMODYNAMICALLY STABLE. MEDICATION TITRATION CHARTED. ASSESSMENTS AND VITAL SIGNS CHARTED. THE RT HAND CONTINUES TO WEEP MORE SEROSANGUINOUS FLUID, BUT ALL OTHER EXTREMITIES HAVE NO CHANGES. WILL CONTINUE TO MONITOR.
--- NOTE | 2019-05-03 10:59 | NUR ---
PATIENT PLACED ON HOLD UNTIL MEDICALLY READY. PLEASE WRITE NEW ORDERS PATIENT IS ABLE TO PARTICIPATE. THANK YOU.
[2019-05-03 11:07] LABS: ANA INTERPRETATION Negative (Negative)
[2019-05-03 16:08] LABS: COMPLEMENT-C3 70 mg/dL (82-167); COMPLEMENT-C4 18 mg/dL (14-44)
--- NOTE | 2019-05-03 20:00 | HC ---
[facility] [place] [address] CONSULTATION Name: KADEEMJAVIER ALMANZAKENYETTA Génesis Room #: 243-P ADM IN M.R.#: [id number] Admission: 04/28/19 ������������������ Attend Phys: Rebecca Olivera Discharge: ������������������ Date of : 42 Report #: [id number] THIS REPORT FOR: //name// CC: Jack Olivera DATE OF SERVICE: 05/01/2019 REASON FOR CONSULTATION: Evaluate tissue necrosis of her extremities post-coronary bypass grafting and bioprosthetic aortic valve placement. HISTORY OF PRESENT ILLNESS: The patient is a 78-year-old who was admitted on 03/28/2019 after her initial hospital stay with diagnosis of 3-vessel coronary artery disease, non-ST elevated MS, and aortic stenosis that required coronary artery bypass grafting and bioprosthetic aortic valve replacement. She received heparin during the procedure and was discharged on Coumadin. She was discharged on 04/26/2019 only to return on 04/28/2019 with worsening confusion, acute renal failure along with distal ischemic changes to her extremities. She has been worked up for HIT and been seen by Hematology, Nephrology, and Cardiovascular Surgery. She has developed profound thrombocytopenia. She remains encephalopathic. Echocardiogram showed no changes to her valve. She has had no pulmonary issues. Now has elevated liver function tests. There has been no increased drainage from her chest incision. There initially was some report of exposure to a pet dog at the [facility], but this has not been substantiated. Definitely appears that the patient was sick enough that she would not have been out with a dog having exposure in that regard. She does have a history of fibromyalgia, Sjogren's syndrome, atrial fibrillation. PAST MEDICAL HISTORY: Non-STEMI, coronary artery disease, coronary bypass grafting with prosthetic AVR on 04/18/2019, acute on chronic diastolic heart failure, aortic valve stenosis, atrial fibrillation flutter, encephalopathy, sicca syndrome, Sjogren syndrome, chronic fatigue syndrome, fibromyalgia syndrome, gout, colitis, hypothyroidism, chronic back pain, degenerative arthritis, previous DVT and PE in 1970, hysterectomy, hiatal hernia surgery, cholecystectomy, cancer to the right leg 2006, right renal stent in 2001 and 2004, hypertension, depression, anxiety, obstructive sleep apnea, gastroesophageal reflux and esophagitis, restless leg syndrome, previous Staph infection after surgery. ALLERGIES: ALPRAZOLAM, CIPROFLOXACIN, ERYTHROMYCIN, PENICILLIN, SULFA, IODINE, DEMEROL, PROPOXYPHENE, ROPINIROLE. MEDICATIONS: As noted on her JAN, now on vancomycin and meropenem. [address] [address] CONSULTATION Name: KENYETTA ETIENNE Room #: 243-P [facility] IN .R.#: [id number] Admission: 04/28/19 ������������������ Attend Phys: Rebecca Olivera Discharge: ������������������ Date of : 42 Report #: [id number] FAMILY HISTORY: Noncontributory. SOCIAL HISTORY: Nonsmoker, no significant alcohol intake. REVIEW OF SYSTEMS: The patient was unable to give any further details. She does have a right subclavian catheter in place, indwelling Spear catheter in place and remains encephalopathic. Full 10-point review unable to obtain otherwise. PHYSICAL EXAMINATION: VITAL SIGNS: Afebrile, blood pressure 145/73, pulse 100-120 range, on argatroban. GENERAL: She was awake, but would then drift back off to sleep. GENITOURINARY: She was confused and could not respond verbally. EXTREMITIES: She had evidence of ischemia to her digits including her whole hand up to the wrist, her fingers to the left hand and bilateral feet involving her distal digits. Pulses in the foot were palpable, dorsalis pedis. Could not palpate a posterior tibials and ecchymosis throughout the left thigh and calf region. No distal ischemia to her ears or her nose. No palpable adenopathy. EYES: Without scleral icterus. MOUTH: Without mucositis. NECK: Supple. Sternal incision was dressed and dry. ABDOMEN: Obese, soft, nontender, no hepatosplenomegaly or mass. GENITOURINARY: External genitalia unremarkable with indwelling Spear catheter. No rash or lesion. RECTAL: Not performed. Able to move all extremities. BACK: Nontender. PSYCHIATRIC: Mood was lethargic. HEART: Regular with crisp valve sounds. LUNGS: Clear anteriorly. Few crackles in the bases bilaterally. LABORATORY STUDIES: Reviewed. Sodium 147, potassium 5.2, bicarbonate 21, creatinine 1.5, bilirubin 4.5 with direct of 2.7, alkaline phosphatase 227, ALT 806, AST 1515. Albumin at 2.8. LDH 1907. Hemoglobin 8.2, WBC 16.8, platelet count 59,000 with 87% segs, 1% band. Peripheral smear shows leukocytosis, no schistocytes reported, platelet antibodies are pending. ESR 3. Haptoglobin pending. Urinalysis, moderate wbc's, rbc's and bacteria. Blood cultures are pending, negative so far. Chest x-ray: No acute infiltrate, slight blunting of the costal margins. Venous Doppler of lower extremities, no acute DVT. Arterial Dopplers of the upper extremities, no occlusions. Ultrasound of the abdomen, hepatic steatosis, normal hepatic artery and main portal vein flow. 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 Autoimmune process also considered, although her sedimentation rate is 2. Infectious causes such as [facility] [address] [place] [address] CONSULTATION Name: KADEEM ALMANZAKENYETTA Génesis Room #: 243-P ADM IN M.R.#: [id number] Admission: 04/28/19 ������������������ Attend Phys: Rebecca Olivera Discharge: ������������������ Date of : 41 Report #: [id number] Neisseria or capnocytophaga seems less likely given her current presentation. This would be diagnosed from blood cultures. Does not seem to fit embolic disease from aortic valve and that there are no other lesions noted to suggest emboli in other regions. RECOMMENDATION: We will continue broad antibiotic coverage pending culture results. We will discuss with microbiology lab to hold her blood cultures 14 days. Agree with plans for transfer to tertiary care. Follow recommendations of Hematology. I have discussed the case with attending and nursing in attendance. ��������������������������������������������� <ELECTRONICALLY SIGNED> ���������������������������������������� By: Mark Day MD ��������������������������������������������� 05/03/191999 1909 0304 Mark Day MD /nt
--- NOTE | 2019-05-03 20:36 | NUR ---
SHIFT SUMMARY PATIENT STATUS UNCHANGED MONITOR CONTINUES TO SHOW AFIB/ AFLUTTER WITH VENTICULAR RATE INCREASING WITH AGGITATION. SWINGING LEGS OFF THE LEFT SIDE OF THE BED. RT HAND SL LESS DRAINAGE TODAY, LEFT HAND HAS DISCOLORATION PAST 2ND KNUCKLE ON DIGETS 2-5. FEET ARE ESSENTIALLY UNCHANGED. VSS. REASSURANCE GIVEN TO PATIENT AND FAMILY. SPOKE WITH SON WHO STATED THAT TO HIS KNOWLEDGE HIS MOTHER HAD NOT SEEN A UX DEVELOPER IN THE PAST. PATIENT REMAINS CONFUSED.
[2019-05-04] VITALS (23 sets, daily range): BP systolic 121–166; BP diastolic 46–98
[2019-05-04 05:12] LABS: HEMATOCRIT 25.6 % (37.0-47.0); HEMOGLOBIN 8.1 gm/dL (12.0-15.0); MCH 33.1 pg (26.0-34.0); MCHC 31.6 g/dL (28.0-37.0); MCV 104.8 fL (80.0-100.0); PLATELET COUNT 56 thou/uL (150-400); RBC 2.44 mil/uL (4.20-5.00); RDW 27.3 % (10.5-14.5)
[2019-05-04 05:25] LABS: APTT 53.4 Seconds (24.5-32.8); PROTIME 18.1 Seconds (9.3-11.4)
[2019-05-04 05:29] LABS: ALBUMIN 2.5 g/dL (3.4-5.0); CALCIUM 8.1 mg/dL (8.5-10.1); CREATININE 1.1 mg/dL (0.6-1.0); MAGNESIUM 2.6 mg/dL (1.8-2.4); POTASSIUM 4.7 mmol/L (3.5-5.1); TOTAL BILIRUBIN 2.1 mg/dL (<0.1-1.0); TOTAL PROTEIN 5.4 g/dL (6.4-8.2)
[2019-05-04 05:39] LABS: INR 1.7
--- NOTE | 2019-05-04 05:40 | NUR ---
APTT within therapeutic range, continue agratoban at same rate. No s/sx of any bleeding. Plt still now. Continue to observe any changes.
--- NOTE | 2019-05-04 06:00 | NUR ---
Pt remains stable in this shift. Resting well last night after receiving pain med. She is pleasantly confuse. Follow some commands at times. VSS. No fever. A-flutter notes on monitor ,rates are controlled. She response well with verapamil IV. Still SOB with any activity, unable to follow instruction for deep breathing and using IS when this RN assisting. Strong cough and productive cough. She refused oral cares after multiple attemps. Keep pt NPO for now until speech therapist able to evaluate her. Lines and dressing are inplaced. Her toes,fingers and Right hand color slightly worsen this am. No changes of pulses from last assessment. She doesn't make any progress in this shift.
[2019-05-04 06:34] LABS: ABSOLUTE NEUTROPHILS 12.4 thou/uL (1.4-8.2); NUCLEATED RBCS 6 /100WBC
[2019-05-04 06:35] LABS: PLATELET ESTIMATE DECREASED
[2019-05-04 06:36] LABS: ANISOCYTOSIS 3+; MACROCYTES 1+; POIKILOCYTOSIS 2+; POLYCHROMASIA 1+
--- NOTE | 2019-05-04 07:52 | NUR ---
Pt WILL BE PLACED ON HOLD UNTIL Pt MORE MEDICALLY STABLE AND ABLE TO PARTICIPATE WITH THERAPY. WILL WAIT UNTIL REORDERED BEFORE ATTEMPTING TO SEE AGAIN.
[2019-05-05] VITALS (17 sets, daily range): BP systolic 114–156; BP diastolic 57–85
--- NOTE | 2019-05-05 06:38 | NUR ---
Received pt. asleep at beginning of shift then woke up eventually. Fed dinner and ate less than 50%. Able to state her name otherwise confused.O2 at 3L/NC with O2 sat in the mid 90's. Shortness of breath with exertion. Morphine given for pain with relief. She slept fair during the night in between cares. Complete bed bath given. Repositioned for comfort and arms elevated with pillows. Afebrile. A fib/flutter with controlled rate. Will continue to monitor.
[2019-05-05 08:43] LABS: HEMATOCRIT 27.2 % (37.0-47.0); HEMOGLOBIN 8.8 gm/dL (12.0-15.0); MCH 33.9 pg (26.0-34.0); MCHC 32.3 g/dL (28.0-37.0); MCV 105.1 fL (80.0-100.0); RBC 2.59 mil/uL (4.20-5.00); RDW 28.4 % (10.5-14.5); WBC 10.4 thou/uL (4.0-11.0)
[2019-05-05 09:34] LABS: ABSOLUTE NEUTROPHILS 9.6 thou/uL (1.4-8.2); ANISOCYTOSIS 2+; HYPOCHROMASIA SLIGHT; MACROCYTES 2+; NUCLEATED RBCS 5 /100WBC; PLATELET COUNT 62 thou/uL (150-400); PLATELET ESTIMATE DECREASED
[2019-05-05 11:11] LABS: ANTI-DNA SCREEN 1 IU/mL (0-9); ANTI-RNP 0.2 AI (0.0-0.9)
--- NOTE | 2019-05-05 15:57 | NUR ---
SW reviewed chart and spoke with nursing and attending physician. Pt remains in ICU. IV abx and IV pain meds. Pt with distal thrombosis in all four extremities. Pt may need amputation of digits. No weekend discharge planned. KEVIN is following to assist as needed with discharge planning.
[2019-05-05 18:09] LABS: ANA INTERPRETATION Negative (())
[2019-05-06] VITALS (13 sets, daily range): BP systolic 134–159; BP diastolic 53–85
[2019-05-06 03:20] LABS: ABSOLUTE NEUTROPHILS 7.5 thou/uL (1.4-8.2); HEMATOCRIT 27.6 % (37.0-47.0); HEMOGLOBIN 8.8 gm/dL (12.0-15.0); LYMPHOCYTES 4.3 % (24.0-44.0); MCH 33.5 pg (26.0-34.0); MCHC 31.8 g/dL (28.0-37.0); MCV 105.2 fL (80.0-100.0); MONOCYTES 6.6 % (1.0-8.0); PLATELET COUNT 74 thou/uL (150-400); POLYS 89.1 % (36.0-66.0); RBC 2.62 mil/uL (4.20-5.00); RDW 27.2 % (10.5-14.5); WBC 8.4 thou/uL (4.0-11.0)
--- NOTE | 2019-05-06 06:23 | NUR ---
ASSUMED PATIENT CARE AT 1900. PATIENT IS LYING IN BED AND ORIENTED TO SELF ONLY. PATIENT MUMBLES INCOMPREHENSIBLE WORDS. PATIENT IS NOTED TO BE WEEPING FROM HER RIGHT HAND AND HER LEFT THIGH. THE RIGHT HAND HAS SKIN THAT IS BUSTING OPEN ESPECIALLY AROUND THE THUMB. PATIENT MEDICATED WITH MORPHINE FOR RELIEF. NO ACUTE EVENTS OCCURRED DURING THIS SHIFT. PATIENT IS NOT PROGRESSING TOWARD GOAL.
--- NOTE | 2019-05-06 17:25 | NUR ---
PT TRANSFERRED TO [facility], CONFUSED, PT HAS NO PERSONAL BELONGINGS, REPORT GIVEN TO VANESSA MONROY. REVIEWED ALL ORDERS AND WOUNDS WITH 3W NURSE.
[2019-05-07 03:54] VITALS: BP 134/94
[2019-05-07 05:47] LABS: ABSOLUTE NEUTROPHILS 7.7 thou/uL (1.4-8.2); BASOPHILS 0.1 % (0.0-2.0); HEMATOCRIT 27.1 % (37.0-47.0); HEMOGLOBIN 8.8 gm/dL (12.0-15.0); MCH 33.7 pg (26.0-34.0); MCHC 32.6 g/dL (28.0-37.0); MCV 103.5 fL (80.0-100.0); MONOCYTES 6.8 % (1.0-8.0); PLATELET COUNT 80 thou/uL (150-400); POLYS 89.1 % (36.0-66.0); RBC 2.62 mil/uL (4.20-5.00); RDW 27.2 % (10.5-14.5); WBC 8.7 thou/uL (4.0-11.0)
[2019-05-07 06:01] LABS: ALBUMIN 2.5 g/dL (3.4-5.0); CREATININE 1.2 mg/dL (0.6-1.0); PHOSPHORUS 3.7 mg/dL (2.5-4.9); POTASSIUM 5.1 mmol/L (3.5-5.1)
--- NOTE | 2019-05-07 07:30 | NUR ---
Pt. able to state her name Miryam otherwise confused and mumbles. Tramadol given for discomfort ( moans ). Repositioned for comfort and arms elevated with pillows. O2 at 5L/NC and desats easily. Took meds crushed with yogurt and thickened water but didn't consume much. Necrotic digits on hands and feet with pulses present.Pt. has generalized weakness. Bed alarm on for safety. Argatroban infusing. Will continue to monitor.
[2019-05-07 07:32] VITALS: BP 154/74
--- NOTE | 2019-05-07 10:54 | NUR ---
Assumed care of pt at 0700. Pt is orientated to person, occasionally opening her eyes when addressed by name. Pt is otherwise confused and makes non-sensible audible sounds. Pt did not tolerate repositioning well this morning. Oxygen sats fell into 60s. Low air loss mattress pump ordered to help prevent pressure injury. Pt able to consume medications PO with yogurt in very small amounts. Pt had no appetite and would not otherwise eat. Generalized weakness. May need to consider alternatives to PO nutrition. Will continue to monitor and assess.
[2019-05-07 11:10] VITALS: BP 185/80
[2019-05-07 15:31] VITALS: BP 168/92
[2019-05-07 19:15] VITALS: BP 173/86
[2019-05-08 03:22] VITALS: BP 158/69
[2019-05-08 05:36] LABS: ABSOLUTE NEUTROPHILS 7.7 thou/uL (1.4-8.2); BASOPHILS 0.1 % (0.0-2.0); HEMATOCRIT 28.4 % (37.0-47.0); HEMOGLOBIN 9.2 gm/dL (12.0-15.0); LYMPHOCYTES 3.5 % (24.0-44.0); MCH 33.9 pg (26.0-34.0); MCHC 32.4 g/dL (28.0-37.0); MCV 104.6 fL (80.0-100.0); MONOCYTES 6.7 % (1.0-8.0); PLATELET COUNT 100 thou/uL (150-400); POLYS 89.7 % (36.0-66.0); RBC 2.72 mil/uL (4.20-5.00); RDW 28.6 % (10.5-14.5); WBC 8.5 thou/uL (4.0-11.0)
--- NOTE | 2019-05-08 05:50 | NUR ---
ASSUMED CARE OF PT AT 1900. PT RESPONDS TO HER NAME AND CLEARLY SAID YES WHEN ASKED IF SHE WAS HURTING. OTHER THAN THAT SHE HAS MUMBLED AND MOANED UNINTELLIGIBLE WORDS. PT HAS BEEN CLENCHING HER JAW AND NOT COOPERATING W/ PO MEDS. CONTACTED GEOTECHNICAL LABORATORY TECHNICIAN FOR IV MEDS NEEDED. IV MORPHINE GIVEN 1X FOR PAIN. IT WAS DIFFICULT TO ASSESS EFFECTIVENESS D/T PT CONTINUING TO MOAN. REPOSITIONED FOR RELIEF AFTER. ARMS AND LEGS CONTINUE TO WEEP. SHEETS AND PADDING CHANGED. MOUTH SWABBED. ORAL MUCOSA QUICKLY BECOMES COVERED W/ THICKED MUCOUS, DIFFICULT TO REMOVE. CURRENTLY RESTING. NO PROGRESSION TOWARDS POC GOALS. WILL CONTINUE TO PROVIDE CARE AND MONITOR.
[2019-05-08 06:36] LABS: ANISOCYTOSIS 3+; LARGE PLATELETS FEW; POLYCHROMASIA 2+
[2019-05-08 07:36] VITALS: BP 142/72
--- NOTE | 2019-05-08 07:56 | HC ---
[facility] [place] [address] CONSULTATION Name: KADEEM ALMANZAKENYETTA Génesis Room #: 352-P ADM IN M.R.#: [id number] Admission: 04/28/19 ������������������ Attend Phys: Rebecca Olivera Discharge: ������������������ Date of : 41 Report #: [id number] THIS REPORT FOR: //name// CC: Jack Olivera DATE OF SERVICE: 05/02/2019 CHIEF COMPLAINT: Ischemic changes to the hands and feet. HISTORY OF PRESENT ILLNESS: This is a 78-year-old female patient who was admitted to the hospital on 04/14/2019 as a transfer from [place], with coronary artery disease and aortic valve stenosis. She underwent coronary artery bypass graft x3 including the left internal mammary artery to left anterior descending artery, saphenous vein to marginal and saphenous vein to posterior descending artery and aortic valve replacement with a 19 mm Harvey-Ma bioprosthesis and endoscopic harvest, left greater saphenous vein. This surgery was performed on 04/18/2019. She did well postoperatively. She had received heparin, initially was transitioned to Coumadin. She subsequently was noted to have a decrease in platelet count and some increase in her creatinine and some ischemic changes involving her right hand, left leg. There is consideration for possible heparin-induced thrombocytopenia. Laboratory studies are pending. She has developed increasing ischemic changes involving her hands and feet. I have been asked to see her with regard to an opinion from wound care. PAST MEDICAL HISTORY: Significant for aortic stenosis, coronary artery disease, status post valve replacement and coronary artery bypass graft surgery, history of non-ST elevation myocardial infarction, atrial fibrillation, hypokalemia, hypothyroidism, Sjogren syndrome, hospitalization for blood clots in 1970, restless leg syndrome, and fibromyalgia. SOCIAL HISTORY: Negative for alcohol or tobacco use. FAMILY HISTORY: Noncontributory. MEDICATIONS: Include Plaquenil, Abilify, Zyloprim, Ativan, Cymbalta, Neurontin, [place], Synthroid, Cozaar, Protonix, and Zantac. ALLERGIES: ALPRAZOLAM, CIPRO, ERYTHROMYCIN, IODINE, MEPERIDINE, PENICILLIN, PROPOXYPHENE, ROPINIROLE, and SULFA. REVIEW OF SYSTEMS: Not obtainable due to the patient's level of confusion. PHYSICAL EXAMINATION: VITAL SIGNS: Include temperature of 36.3, pulse 97, respiratory rate of 20, and blood pressure 132/55. [address] [address] CONSULTATION Name: KADEEM ALMANZAKENYETTA Room #: 352-P [facility] IN .R.#: [id number] Admission: 04/28/19 ������������������ Attend Phys: Rebecca Olivera Discharge: ������������������ Date of : 41 Report #: [id number] GENERAL: This is a somewhat chronically ill-appearing female patient who is confused, somnolent, but will grasp my hand when touched. HEENT: Head normocephalic. Nose and throat are clear. NECK: Supple. LUNGS: Clear. HEART: Seems irregular. ABDOMEN: Soft. EXTREMITIES: Demonstrate ischemic changes involving the 4 extremities, much more pronounced involving the right hand. There is some evidence of some ecchymotic, almost purple appearing skin to the right hand as well as the tips of the fingers of the left hand and the toes on both feet. NEUROLOGIC: The patient does seem to move all 4 extremities spontaneously. She is confused. LABORATORY DATA: Include sodium 149, potassium 4.1, chloride 117, CO2 23, BUN 37, creatinine 1.3, AST is 1058, ALT is 810, alkaline phosphatase is 204, total protein 5.2, albumin 2.6. Protime is 82.3 and INR is 8.0. White blood cell count 14.2 with a hemoglobin of 7.8, and platelet count is 56,000. CLINICAL IMPRESSION: 1. Ischemic appearing right hand, left fingers and toes bilaterally. There is concern for underlying heparin-induced thrombocytopenia and the additional possibility of Coumadin necrosis. Serologies are pending. 2. Heparin-induced thrombocytopenia, presumed. 3. Prolonged INR. RECOMMENDATIONS: At this point in time, we will recommend conservative care for the skin. I would hold off on any amputative surgery at present and leave these areas open to air. I do not even think that we would benefit from Betadine over the topical care, other than just to be protective in general. She will need ongoing nutritional support and continue his current medications. I have discussed this directly with Dr. Olivera and it is noted that Hematology is following the patient. I appreciate being asked to see her in consultation. ��������������������������������������������� <ELECTRONICALLY SIGNED> ���������������������������������������� By: Damaso Nixon MD ��������������������������������������������� 05/08/19 [id number] Damaso Nixon MD /nt
[2019-05-08 11:12] VITALS: BP 177/89
--- NOTE | 2019-05-08 13:19 | NUR ---
KEVIN reviewed chart and spoke with nursing and attending physician. Pt was transferred to from ICU on 05/06. Pt to have NG tube placed in IR later today. No plans for amputation at this time. Ortho/wound care is following. Recommendation made for pt to go to an LTAC at time of discharge. KEVIN spoke with pt's son, Miguel, via phone to provide update and discuss recommendation for post-acute placement. KEVIN explained levels of care provided in LTAC v. SNF. LTAC options discussed with pt's son. Pt's son requests referral to be sent to [facility]. category planner to fax referral to [facility]. KEVIN notified [facility] liaison, who will do onsite evaluation. KEVIN is following to assist as needed with discharge planning.
--- NOTE | 2019-05-08 13:33 | NUR ---
INTERNET E COMMERCE SPECIALIST SENT REFERRAL LTAC TO [facility] LET Magdalena/[facility] KNOW IT IS ON THE WAY.
--- NOTE | 2019-05-08 17:27 | NUR ---
WOUND CARE FOLLOW UP; ROUNDING WITH DR MELL CEJA AND CHEMO OSPINA PATTERN KEEPER. WE ARE FOLLOWING THIS PATIENT FOR OBSERVATION ONLY. TO BE READY FOR THIS PATIENT HER CONDITION CHANGES. NOTHING TO ADD OF TODAY.
[2019-05-08 19:45] VITALS: BP 180/87
--- NOTE | 2019-05-08 19:50 | NUR ---
Patient very lethargic today and not following commands. Patient just moans and rarely answers yes or no questions. Patient made NPO after speech evaluated patient this AM. NG tube insertion attempted by 3 different RNs and attempts were all unsuccessful. NG tube placed by radiology. Placement verified by x-ray and auscultation. Tube feed infusing and meds given through NG tube. Family notified of patient placed on restraints at 1500 this afternoon due to patient trying to pull out NG tube and nasal cannula. Fall precautions in place. Not much progress toward plan of care at this time.
[2019-05-09] VITALS (7 sets, daily range): BP systolic 136–185; BP diastolic 70–96
--- NOTE | 2019-05-09 04:34 | NUR ---
SLEPT MOST OF SHIFT. REPOSITIONED EVERY 2-3 HOURS FOR COMFORT. REMAINS CONFUSED AND LETHARGIC. NO UNDERSTANDABLE SPEECH BUT MUMBLES. OPENS EYES AT TIMES. NOTED WHEEZING PAST TURNING. RT HERE FOR TREATMENT. WORKING ON GOALS AND PLAN OF CARE FOR NOC. NOT PROGRESSING TOWARDS DISCHARGE GOALS. CONTINUE TO ASSES CLOSELY. REASSURE AND EXPLAIN ALL CARES AND PROCEDURES NEEDED.
[2019-05-09 06:01] LABS: HEMOGLOBIN 9.1 gm/dL (12.0-15.0)
[2019-05-09 06:03] LABS: HEMATOCRIT 28.3 % (37.0-47.0); MCH 33.2 pg (26.0-34.0); MCHC 32.3 g/dL (28.0-37.0); PLATELET COUNT 112 thou/uL (150-400); RBC 2.74 mil/uL (4.20-5.00); RDW 27.7 % (10.5-14.5); WBC 12.7 thou/uL (4.0-11.0)
[2019-05-09 06:19] LABS: ALBUMIN 2.6 g/dL (3.4-5.0); CALCIUM 7.9 mg/dL (8.5-10.1); TOTAL BILIRUBIN 2.5 mg/dL (<0.1-1.0); TOTAL PROTEIN 5.7 g/dL (6.4-8.2)
[2019-05-09 07:36] LABS: ABSOLUTE NEUTROPHILS 11.7 thou/uL (1.4-8.2); ANISOCYTOSIS 1+; NUCLEATED RBCS 1 /100WBC
[2019-05-09 07:37] LABS: MACROCYTES 1+; MICROCYTES 1+; POLYCHROMASIA SLIGHT
--- NOTE | 2019-05-09 09:15 | NUR ---
Recommend change enteral formula to glucerna 1.2 at 65ml/hr. Recommend discontinue D5 ivf and start water flush of 150ml every 6 hr and add 1 packet of beneprotein with each flush
--- NOTE | 2019-05-09 13:05 | NUR ---
SW reviewed chart and spoke with nursing and attending physician. Pt is progressing towards goals for discharge. Pt has NG tube in place. SW discussed case with [facility] liaison, who states they are able to accept pt when she is medically stable. Discharge to LTAC is anticipated for later in the week. Pt to be started on Eliquis when discharged. KEVIN faxed clinical updates to [facility] for review. KEVIN is following to assist as needed with discharge planning.
--- NOTE | 2019-05-09 15:00 | NUR ---
WOUND CARE FOLLOW UP; WE CONTINUE TO FOLLOW THIS PATIENTS RECOVERY. ALL AREAS SHOW POSITIVE IMPROVEMENT AT THIS TIME. NOTHING TO ADD TODAY. DISCUSSED WITH RN
--- NOTE | 2019-05-09 18:19 | NUR ---
PT MINIMALLY RESPONSIVE THIS SHIFT. ALEC WRIST RESTRAINTS REMAIN IN PLACE TO PREVENT FROM PULLING AT TUBES. PT REPOSITIONED FREQUENTLY. IV LASIX GIVEN, DIURESES 2800 ML URINE. PT BREATHING EFFORT EASED AFTER LASIX AND PRN MORPHINE. KUB ORDERED D/T HYPOACTIVE BOWEL SOUNDS, SHOWED MILD GAS DISTENTION, RESIDUAL CONTRAST IN COLON. TF GOING THROUGH NG, CHANGED TO GLUCERNA PER DIETARY RECOMMENDATION. PRN HYDRALAZINE ORDER OBTAINED FOR HIGH BP, DID NOT HAVE TO GIVE BP IMPROVED AFTER MORPHINE ADMINISTRATON. PT VISITED AND UPDATED TODAY.
[2019-05-10] VITALS (7 sets, daily range): BP systolic 142–157; BP diastolic 57–89
--- NOTE | 2019-05-10 04:43 | NUR ---
ASSUMED CARE FROM DAY SHIFT PT AWAKE WILL OPEN EYES BUT WILL NOT ANSWER TO NAME OR FOLLOW INSTRUCTION, DOPPLER PULSES, RESTRAINTS INTACT TO RPEVENT PT FROM PULLING OUT NG TUBE OR O2 , MPT TURNED EVERY 2 HOURS, KOHLER REMAIN WITH ADQ OUTPUT. NO CHANGES NOTED IN PREVIUOS ASSESSMENT WILL CONINTUE WITH CURRENT PLAN OF CARE IV GTT OF AGATRABAN INFUSING WELL AM LAB DRAWN. WILL REPORT CHANGES OR ABNORMAL FINDINGS NSR ST ON COMMUNITY SERVICE DIRECTOR.
[2019-05-10 05:22] LABS: HEMATOCRIT 27.5 % (37.0-47.0); HEMOGLOBIN 8.9 gm/dL (12.0-15.0); MCH 33.1 pg (26.0-34.0); MCHC 32.2 g/dL (28.0-37.0); MCV 102.8 fL (80.0-100.0); PLATELET COUNT 115 thou/uL (150-400); RBC 2.68 mil/uL (4.20-5.00); RDW 28.1 % (10.5-14.5); WBC 16.1 thou/uL (4.0-11.0)
[2019-05-10 05:29] LABS: ALBUMIN 2.5 g/dL (3.4-5.0); PHOSPHORUS 2.4 mg/dL (2.5-4.9); POTASSIUM 4.3 mmol/L (3.5-5.1)
[2019-05-10 07:52] LABS: NUCLEATED RBCS 2 /100WBC
[2019-05-10 07:53] LABS: ANISOCYTOSIS 3+; MACROCYTES 1+; POLYCHROMASIA OCCASIONAL
--- NOTE | 2019-05-10 14:30 | NUR ---
SW reviewed chart and spoke with nursing and attending physician. Pt to have MRI today due to encephalopathy. Pt may be aspirating on tube feeding. SW updated [facility] liaison, who confirms they are able to accept pt to the LTAC when she is medically stable. Pt will be on Eliquis at time of discharge. KEVIN is following to assist as needed with discharge planning.
--- NOTE | 2019-05-10 18:10 | NUR ---
Patient remains lethargic and confused while not following commands, but responsive to painful stimuli. Lasix IV administered, large output in quach. Restraint order renewed per Dr. Olivera. Tube feeding on hold for possible aspiration, but to continue flushes also per Dr. Olivera. Dr. Olivera asked by this RN if he would like to continue D5W fluids since patient is NPO with no tube feed infusing; Dr. Olivera said to just continue the Q6H flushes with no IV D5W. MRI of head completed this afternoon. Patient had a moderate sized BM this afternoon. Son at bedside for a couple of hours. Dr. Cabello and case management spoke with son for awhile. Slow progress toward plan of care goals at this time.
--- NOTE | 2019-05-11 03:28 | NUR ---
PATIENT IS AWAKE. PATIENT TRACKS MOVEMENT AND CONVERSATION. PATIENT WAS ABLE TO AT TIMES ANSWER QUESTIONS BY SHAKING HEAD YES OR NO. PATIENT STILL APPEARS TO BE CONFUSED. PATIENT IS IN RESTRAINTS TO PREVENT PULLING ON EQUIPMENT. PATIENT IS A FIB A FLUTTER ON TELE. PATIENT HAS HX OF FIB AND FLUTTER. PATIENT HAS NG TO RT NARE. TUBE FEED IS CURRENTLY ON HOLD. PATIENT IS Q6H ACCUCHECK. PATIENT IS 2LNC. PATIENT HAS A OKHLER. PATIENT IS NPO. PATIENTS TOUNGE IS BLACK A DRY. ORAL HYGIENE GIVEN Q2H. PATIENT IS ON ARGATROBAN DRIP. DRESSINGS ARE CLEAN DRY AND INTACT. PLAN IS TO SEND PATIENT TO [facility] ONCE MEDICAILY STABLE. PATIENT IS Q2TURN. LBM WAS THE 19TH. PATIENT IS RESTING COMFORTABLY IN BED. WCM.
[2019-05-11 04:40] VITALS: BP 143/84
[2019-05-11 05:53] LABS: HEMATOCRIT 25.9 % (37.0-47.0); HEMOGLOBIN 8.3 gm/dL (12.0-15.0); MCH 32.8 pg (26.0-34.0); MCHC 32.2 g/dL (28.0-37.0); MCV 101.9 fL (80.0-100.0); PLATELET COUNT 95 thou/uL (150-400); RBC 2.54 mil/uL (4.20-5.00); WBC 12.5 thou/uL (4.0-11.0)
[2019-05-11 06:23] LABS: ABSOLUTE NEUTROPHILS 11.3 thou/uL (1.4-8.2); PLATELET ESTIMATE DECREASED
[2019-05-11 06:24] LABS: ANISOCYTOSIS 1+; POIKILOCYTOSIS 1+
[2019-05-11 07:27] VITALS: BP 133/69
--- NOTE | 2019-05-11 10:06 | HC ---
[facility] [place] [address] CONSULTATION Name: RAMAN ETIENNEARA Génesis Room #: 352-P ADM IN M.R.#: [id number] Admission: 04/28/19 ������������������ Attend Phys: Rebecca Olivera Discharge: ������������������ Date of : 41 Report #: [id number] THIS REPORT FOR: //name// CC: Jack Olivera DATE OF SERVICE: 05/01/2019 REASON FOR CONSULTATION: Possible TTP. HISTORY OF PRESENT ILLNESS: This 78-year-old patient was admitted with a non-ST elevation ME, was found to have three-vessel coronary artery disease and aortic stenosis and 10 days before this admission underwent coronary bypass and aortic valve replacement with a bioprosthetic aortic valve. She received heparin with the initial procedure, eventually was converted to Coumadin and then was discharged two days before this admission. At that time, she was fairly stable, but over the course of those two days, has had clinical deterioration with worsening renal function, weakness and worsening confusion and was readmitted. At that time, platelet count had dropped from 120,000 down to 73,000. Creatinine had elevated from 1.5 up to 2.7. BUN had elevated from 40 up to 75 and over the course of the next several days, developed worsening ischemia with developing gangrene, particularly of the right hand and left leg. Subsequently, liver function studies were found to be extremely elevated. She became jaundiced. IV fluids were given and serum creatinine improved down to 1.5. LDH was found to be markedly elevated as well and we were called to evaluate for the possibility of TTP. PAST MEDICAL HISTORY: Recent coronary bypass and aortic valve procedure as mentioned above, previous history of renal arterial stent, depression, hypertension, hyperlipidemia. ALLERGIES: REPORTEDLY TO ERYTHROMYCIN, MEPERIDINE, PENICILLIN, PROPOXYPHENE. SOCIAL HISTORY: No current cigarette use, was living in assisted living before that time. REVIEW OF SYSTEMS: Cannot be taken due to her extremely confused mental status. PHYSICAL EXAMINATION: GENERAL: This is a very ill-appearing patient seen in ICU. She is very confused, restless and anxious. SKIN: Particularly ecchymotic up to the left lower extremity with developing cyanosis and ischemia to the hands and feet, particularly the right hand. HEENT: Extraocular movements appear to be full. I cannot determine whether there is scleral icterus. Mucous membranes are slightly dry. NECK: Veins are not distended. [facility] [address] [place] [address] CONSULTATION Name: KADEEM CAMIKENYETTA Room #: 352-P [facility] IN M.R.#: [id number] Admission: 04/28/19 ������������������ Attend Phys: Rebecca Olivera Discharge: ������������������ Date of : 41 Report #: [id number] CHEST: Shows diminished breath sounds. HEART: Rapid and irregular. ABDOMEN: Soft and nontender. EXTREMITIES: Showing the cyanosis and ischemia as mentioned. NEUROLOGIC: Showing moving all extremities well, but very confused and agitated. LABORATORY DATA: Urinalysis indicated urinary tract infection with bacteriuria and leukocyturia. The hemoglobin is 8.2, platelets currently are 59,000, white count 16.8 with 1% band. No schistocytes were seen on initial smear. Sodium 147, potassium 5.2, chloride 116, bicarbonate 21, BUN 47, creatinine 1.5, AST 1115, ALT 806, bilirubin 4.8, albumin 2.8. ASSESSMENT AND PLAN: Thrombocytopenia with threatened limb ischemia. 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 These types of manifestations are not characteristic of thrombotic thrombocytopenia purpura. Peripheral smear is not characteristic of thrombotic thrombocytopenia purpura. With this severe illness with thrombotic thrombocytopenia purpura, we would expect a platelet count to be much lower. Liver function test elevations are not characteristic of thrombotic thrombocytopenia purpura either. Certainly, measurement of [id number] activity would be indicated, but I doubt that this will yield a diagnosis of thrombotic thrombocytopenia purpura. I suspect treatment is appropriate with argatroban, discontinuation of Coumadin which can exacerbate thrombotic thrombocytopenia purpura particularly protein C deficient individuals is certainly appropriate, although this picture is not characteristic of Coumadin skin necrosis. We will certainly follow along. Her electrolytes are bit off. Appropriate IV fluids are being given. We may need to help regulate IV fluid composition administration. Thank you for allowing me to see this very ill patient. ��������������������������������������������� <ELECTRONICALLY SIGNED> ���������������������������������������� By: Melo Ramirez MD ��������������������������������������������� 05/11/19 [id number] Melo Ramirez MD /nt
[2019-05-11 11:48] VITALS: BP 145/72
--- NOTE | 2019-05-11 12:20 | NUR ---
SW reviewed chart and spoke with nursing and attending physician. Pt to have tube feeding restarted gradually. Anticipate discharge to LTAC early next week. SW provided update to [facility] liaison, who will continue to follow pt for admission to LTAC when medically stable. KEVIN is following to assist as needed with discharge planning.
--- NOTE | 2019-05-11 14:50 | NUR ---
WOUND CARE FOLLOW UP; ROUNDING WITH DR MELL CEJA AND CHEMO MENDEZ. WE CONTINUE TO FOLLW THIS PATIENTS PROGRESS. THESE AREAS SHOW MUCH IMPROVMENT SINCE ADMISSION. THE PATIENT WAS AWAKE TODAY. PLAN TO CONTINUE TO FOLLOW THIS PATIENT.
[2019-05-11 15:06] VITALS: BP 137/71
--- NOTE | 2019-05-11 19:37 | NUR ---
Patient much more alert but drowsy. Patient was answering well to yes/no questions. The only orientation question she could answer correctly was that her last name is Romel. Restraint order renewed by doctor Jarod as patient is still confused. Patient using swabs to moisten mouth. Patient taken to radiology with VANESSA Blount for GI x-ray. Tube feed restarted this evening at 65 mls/hr. Very slow progress toward plan of care at this time.
[2019-05-11 19:48] VITALS: BP 147/66
--- NOTE | 2019-05-12 03:22 | NUR ---
PATIENT IS ALERT TO SELF. PATIENT WANTS FOOD. PATIENT HAS NG TUBE MEASURING AT 65 TAPE CHANGED YESTERDAY. PATIENT IS TUBE FEED AT 65ML. PATIENT IS ROOM AIR. PATIENT IS A FIB ON TELE. PATIENTS LBM WAS THE . PATIENT HAS A KOHLER FOR I AND O AND LASIX. PATIENTS ALERTNESS HAS IMPROVED. PAITENT IS ON CONTINOUS PULSE OX. PATIENT IS PENDING [facility] ONCE MEDICALY STABLE. PATIENT IS Q2 TURN. BATH ON . PATIENT ON ARGOTABAN DRIP. DRIP IS THERAPUTIC. ALL EXTEREMITES SEEM TO BE IMPROVING IS COLOR WITH THE EXPECTION OF THE RUE. DRESSING HAVE BEEN CHANGED. PATIENT BARRIER CREAM APPLIED. PATIENT IS RESTING COMFORTABLY IN BED. DENIES PAIN. PATIENT IS PROGRESSING TO GOALS. WCM.
[2019-05-12 06:00] VITALS: BP 141/71
[2019-05-12 06:49] LABS: ABSOLUTE NEUTROPHILS 9.3 thou/uL (1.4-8.2); BASOPHILS 0.2 % (0.0-2.0); EOSINOPHILS 3.5 % (0.0-3.0); HEMATOCRIT 24.5 % (37.0-47.0); HEMOGLOBIN 7.9 gm/dL (12.0-15.0); LYMPHOCYTES 4.2 % (24.0-44.0); MCH 33.2 pg (26.0-34.0); MCHC 32.3 g/dL (28.0-37.0); MONOCYTES 7.4 % (1.0-8.0); POLYS 84.7 % (36.0-66.0); RBC 2.38 mil/uL (4.20-5.00); RDW 25.3 % (10.5-14.5)
[2019-05-12 06:50] LABS: PLATELET COUNT 93 thou/uL (150-400)
[2019-05-12 07:25] LABS: ANISOCYTOSIS 2+
[2019-05-12 07:34] VITALS: BP 154/71
[2019-05-12 11:09] VITALS: BP 137/68
--- NOTE | 2019-05-12 12:39 | NUR ---
WOUND CONSULT; ROUNDING WITH DR MELL CEJA AND CHEMO REGISTERED RADIOGRAPHER. THE PATIENTS TOES HAVE A HARDENING ECHAR-LIKE PRESENTATION. THE PATIENT IS AWAKE. RECOMMENDATIONS; NONE AT THIS TIME
--- NOTE | 2019-05-12 15:38 | NUR ---
SW reviewed chart and spoke with nursing and attending physician. Pt is progressing towards goals for discharge to LTAC. [facility] liaison was onsite earlier today to obtain updates and evaluate pt. Anticipated discharge to LTAC early next week. SW left voice message for pt's son to provide update and notify of anticipated discharge. SW is following to assist as needed with discharge planning.
--- NOTE | 2019-05-12 16:02 | NUR ---
DISCHARGE PLANNING. ANTICIPATED DISCHARGE TO [facility] NEXT WEEK CLINICAL UPDATES FAXED TO [facility], FOR DISCHARGE PLANNING PROCESS. VERIFIED RECEIVED. FOLLOWING TO ASSIST WITH DISCHARGE PLACEMENT NEEDS.
[2019-05-12 16:22] VITALS: BP 134/62
[2019-05-12 19:11] VITALS: BP 126/60
--- NOTE | 2019-05-12 20:12 | NUR ---
PT ALERT AND ORIENTED TIMES FOUR WITH PERIODS OF CONFUSION. VSS, 99%RA, ARGOTABAN GTT INFUSING PER ORDER. NG TUBE TUBE FEEDING PT TOLERATES WELL. KOHLER TO DD. PT C/O PAIN PRN PAIN MEDICATIONS GIVEN WITH GOOD RELEIF. PT TURNED FREQUENTLEY THIS SHIFT. WILL CONTINUE TO MONITOR.
[2019-05-13 03:07] VITALS: BP 131/60
[2019-05-13 06:14] LABS: ABSOLUTE NEUTROPHILS 8.6 thou/uL (1.4-8.2); BASOPHILS 0.1 % (0.0-2.0); EOSINOPHILS 3.6 % (0.0-3.0); HEMATOCRIT 23.3 % (37.0-47.0); HEMOGLOBIN 7.6 gm/dL (12.0-15.0); LYMPHOCYTES 5.3 % (24.0-44.0); MCH 33.2 pg (26.0-34.0); MCHC 32.5 g/dL (28.0-37.0); MCV 102.4 fL (80.0-100.0); MONOCYTES 8.9 % (1.0-8.0); PLATELET COUNT 104 thou/uL (150-400); POLYS 82.1 % (36.0-66.0); RBC 2.27 mil/uL (4.20-5.00); RDW 24.7 % (10.5-14.5); WBC 10.5 thou/uL (4.0-11.0)
[2019-05-13 06:29] LABS: ALBUMIN 2.1 g/dL (3.4-5.0); DIRECT BILIRUBIN 0.7 mg/dL (<0.1-0.3); TOTAL BILIRUBIN 1.2 mg/dL (<0.1-1.0); TOTAL PROTEIN 5.1 g/dL (6.4-8.2)
[2019-05-13 07:23] VITALS: BP 117/67
--- NOTE | 2019-05-13 07:48 | NUR ---
PATIENT IS ALERT TO SELF. PATIENT IS [id number]. PATIENT LBM WAS THE 19TH. PATIENT HAS A KOHLER. PATIENT IS A FIB ON TELE. PATIENTS NG IS 65. PATIENT IS TUBE FEED AT 25ML. PLAN IS TO DC NG TODAY AND PUT ON DIET. PATIENT WAS EVALUATED BY YESTERDAY. PAITNET IS EGER TO EAT. NO CHANGE IN DRIP TODAY. NO CHANGE IN NECROSIS. PATIENTS RT HAND IS STILL EDEMATOUS. PATIENTS PAIN IS CONTROLLED WITH PAIN MEDICATION. PATIENT IS IN RESTRAINTS MAY BE DC ONCE NG IS REMOVED. WCM. PATIENT IS PROGRESSING TO GOALS.
[2019-05-13 11:32] VITALS: BP 146/64
[2019-05-13 16:44] VITALS: BP 117/59
--- NOTE | 2019-05-13 17:32 | NUR ---
Assumed pt care at 7am.Pt in bed alert and oriented to self only but pleasant. Assessment completed.vss.Repositioned q2h in bed for comfort.Drsg change done to rt hand.Pt on cont.argatroban.Aptt within therapeutic range today.Family here to visit,updates given.Will continue to monitor.
[2019-05-13 20:19] VITALS: BP 138/66
[2019-05-14 04:47] VITALS: BP 135/62
[2019-05-14 07:03] LABS: HEMATOCRIT 22.4 % (37.0-47.0); HEMOGLOBIN 7.2 gm/dL (12.0-15.0); MCH 32.9 pg (26.0-34.0); MCHC 32.1 g/dL (28.0-37.0); MCV 102.5 fL (80.0-100.0); PLATELET COUNT 107 thou/uL (150-400); RBC 2.19 mil/uL (4.20-5.00); RDW 25.3 % (10.5-14.5); WBC 9.1 thou/uL (4.0-11.0)
[2019-05-14 07:14] VITALS: BP 116/58
[2019-05-14 07:18] LABS: ALBUMIN 1.9 g/dL (3.4-5.0); CALCIUM 8.3 mg/dL (8.5-10.1); PHOSPHORUS 2.8 mg/dL (2.5-4.9); POTASSIUM 3.4 mmol/L (3.5-5.1)
[2019-05-14 07:25] LABS: ABSOLUTE NEUTROPHILS 6.9 thou/uL (1.4-8.2); ANISOCYTOSIS 2+; PLATELET ESTIMATE NORMAL
--- NOTE | 2019-05-14 07:35 | NUR ---
Pt. oriented to person , place and remembered it's April. Frequently reoriented. She has been asking for ice cream,coke, pasta,shrimp and coffee. Tolerating tube feeding with water flushes per NGT. She has been repositioned for comfort. Both arms elevated with pillows. Wiley. wrist restraints to protect lines. Bed alarm on. Denies being in pain when asked. A fib with controlled rate per tele. Tolerating room air well. Cont. on argatroban gtt. Will continue to monitor.
--- NOTE | 2019-05-14 09:45 | NUR ---
VASCULAR ACCESS NURSE ROUNDING. CVC LINE APPROPRIATE. THIS PATIENT IS NOT A CANIDATE FOR PERIPHERAL PIV DUE TO CURRENT MEDICAL CONDITION. WE WILL CONTINUE TO ROUND DAILY TO MONITOR LINE
[2019-05-14 11:50] VITALS: BP 118/47
[2019-05-14 16:25] VITALS: BP 112/61
--- NOTE | 2019-05-14 19:44 | NUR ---
Patient still restrained for confusion and reorientation failure for adequate patient safety, and to ensure she is getting her nutrition without pulling the NG tube out. Patient was oriented to person and able to tell this nurse the year. Morphine IV administerd for pain levels ranging from 5 to 10. Zofran given once for nausesa. Patient anxious and tearful today. Wet water swabs given to moisten mouth. Tube feed still infusing at 25 mls/hr. Flushes administered. Not much progress toward plan of care today as patient still wants to eat/drink and pain is still at very high levels.
[2019-05-14 19:50] VITALS: BP 118/46
[2019-05-15 03:45] VITALS: BP 105/49
[2019-05-15 04:57] LABS: HEMATOCRIT 23.4 % (37.0-47.0); HEMOGLOBIN 7.4 gm/dL (12.0-15.0); MCH 32.9 pg (26.0-34.0); MCHC 31.7 g/dL (28.0-37.0); MCV 103.7 fL (80.0-100.0); RBC 2.25 mil/uL (4.20-5.00); RDW 23.9 % (10.5-14.5); WBC 11.6 thou/uL (4.0-11.0)
[2019-05-15 04:58] LABS: CALCIUM 8.5 mg/dL (8.5-10.1); CREATININE 1.1 mg/dL (0.6-1.0)
[2019-05-15 07:37] VITALS: BP 133/54
--- NOTE | 2019-05-15 08:09 | NUR ---
patient is alert to self. patient is on blood thinner drip. patient is q2 turn. patients dressing are all changed clean dry and intact. patients lbm was the 19th. patient is in restraints. paitents ng tube to the right nare. feeding go at 25ml/hr 100 q6h flush with protien powder qs. patient is a fib. patient is pureed diet. patient is on honey thick liquid. patiet pain is treated with pain medication. patient is resting comfortably in bed. wcm. patient is progressing to goals.
--- NOTE | 2019-05-15 10:12 | NUR ---
Discharge Planning: faxed updates to [facility]. Patient to discharge today. DP will follow up on discharge planning.
[2019-05-15 11:15] VITALS: BP 107/49
--- NOTE | 2019-05-15 14:37 | NUR ---
KEVIN reviewed chart and spoke with nursing and attending physician. Pt had video swallow study done earlier today. Pt will be on pureed diet and honey thickened liquids. facilities planner sent updates to [facility]. Anticipate discharge in 1-2 days. KEVIN discussed case with [facility] liaison. Pt to be discharged to [facility] on Eliquis. KEVIN spoke with pt's son, Miguel, via phone to provide update and discuss discharge plan. Miguel requests to speak to physicians regarding pt's current condition and plan of care. Pt's son wants to know why pt is being discharged when she is doing well in the hospital. KEVIN explained that once pt is stable, then pt's care needs can be met at a lower level of care in an LTAC facility. KEVIN also provided alternate LTAC options, shoudl they want to consider another LTAC. [facility] is the preference due to location. KEVIN provided pt's son's contact info to attending physician. [facility] medically [facility] for [facility]. KEVIN is following to assist as needed with discharge planning.
[2019-05-15 16:32] VITALS: BP 133/62
--- NOTE | 2019-05-15 18:24 | NUR ---
ASSUMED PATIENT CARE AT 0700. ALERT TO SELF. CONFUSED TALKING. NG TUNE DC AFTER PATIENT TOLERATED PUREE DIET. POOR APPETITE. ONLY ABLE TO HAVE 25-60% MEAL. OFF RESTRAINT AT 1000. Q2H TURN. DRESSING CHANGED PER ORDER. SOLWLY TOWARDS POC GOALS.
[2019-05-15 19:24] VITALS: BP 125/60
[2019-05-16 03:34] VITALS: BP 143/66
[2019-05-16 04:52] LABS: HEMATOCRIT 21.9 % (37.0-47.0); MCH 32.9 pg (26.0-34.0); WBC 11.1 thou/uL (4.0-11.0)
[2019-05-16 04:53] LABS: MCHC 31.7 g/dL (28.0-37.0); MCV 103.7 fL (80.0-100.0); RBC 2.11 mil/uL (4.20-5.00); RDW 24.3 % (10.5-14.5)
--- NOTE | 2019-05-16 05:01 | NUR ---
PATIENT DID NOT SLEEP TONIGHT. ASSIST TO REPOSITION PRN. WORKING ON GOALS AND PLAN OF CARE FOR NOC. TURNS SELF AT TIMES AND ASSIST NEEDED. CONTINUES TO TALK TO TV AND DOES NOT MAKE SENCE. PROGRESSING SLOWLY TOWARDS GOALS FOR SURGERY. DENIES COMPLAINTS OF PAIN OR SHORTNESS OF AIR. CONTINUE TO ASSES.
[2019-05-16 07:21] VITALS: BP 138/74
[2019-05-16 08:15] LABS: % SATURATION 13 % (20-39); IRON 25 ug/dL (50-170); TIBC 197 ug/dL (250-450)
[2019-05-16 08:25] LABS: OBSERVED RETIC COUNT 2.17 % (0.6-2.6)
[2019-05-16 11:30] VITALS: BP 116/55
[2019-05-16] MEDS ORDERED: ELIQUIS5 MG PO (13:17)
--- NOTE | 2019-05-16 15:10 | NUR ---
KEVIN reviewed chart and spoke with nursing and attending physician. Pt started on PPN today per GI. Unsure if pt will need a peg tube. SW updated [facility] liaison, who states they are able to accept pt on PPN if needed. Anticipate discharge to [facility] tomorrow. KEVIN left voice message for pt's son, Miguel, to provide update and notify of anticipated discharge. KEVIN is following to assist as needed with discharge planning.
[2019-05-16 16:49] VITALS: BP 146/75
--- NOTE | 2019-05-16 17:49 | NUR ---
ASSUMED PATIENT CARE AT 0700. ALERT TO SELF. CONFUSED TALKING. POOR APPETITE, STARTED PPN. REPORTED TO DR DWYER RIGHT ARM DVT. DRESSSING CHANGED PER ORDER. PAIN MEDS GIVEN NEED. SLOWLY TOWARDS POC GOALS.
[2019-05-16 19:05] VITALS: BP 145/62
--- NOTE | 2019-05-17 03:51 | NUR ---
Pt. has been repositioned for comfort. Medicated for pain x1 with some relief. Oriented to person and was able to state her birthday and it's [birth year] of 2018 though she is very forgetful. Frequently reoriented. She slept some. Tolerating room air with no respiratory distress. PPN infusing. Took meds crushed with applesauce. Right hand with dressing and arms elevated with pillow.A fib with controlled rate. Bed alarm on. Slowly making progress towards care plan goals.
[2019-05-17 04:13] VITALS: BP 136/70
[2019-05-17 05:58] LABS: HEMATOCRIT 20.8 % (37.0-47.0); HEMOGLOBIN 6.8 gm/dL (12.0-15.0)
[2019-05-17 06:00] LABS: MCHC 32.6 g/dL (28.0-37.0); MCV 104.4 fL (80.0-100.0); RBC 1.99 mil/uL (4.20-5.00); RDW 24.2 % (10.5-14.5); WBC 9.8 thou/uL (4.0-11.0)
[2019-05-17 06:07] LABS: CALCIUM 8.4 mg/dL (8.5-10.1); POTASSIUM 3.8 mmol/L (3.5-5.1)
[2019-05-17 07:18] VITALS: BP 149/57
[2019-05-17 11:10] VITALS: BP 117/53
[2019-05-17 12:31] VITALS: BP 118/48; BP 138/59
--- NOTE | 2019-05-17 13:42 | NUR ---
DISCHARGE NOTE: SW reviewed chart and spoke with nursing and attending physician. Pt is medically stable for discharge to [facility] today. SW updated [facility] liaison, who confirms they are able to accept pt today. internet media planner to coordinate and notify family. SW is following to assist as needed with discharge planning.
--- NOTE | 2019-05-17 14:38 | NUR ---
DISCHARGE ORDERS RECEIVED. PATIENT DISCHARGING TO [facility]. CHART COPIED PER EDITOR PRODUCER. DISCHARGE ORDERS FAXED TO [facility] LIAISON, VERIFIED RECEIVED. [facility] TO TRANSPORT PATIENT 1730 HOURS. SON NOTIFIED PER ATTENDING PHYSICIAN. CONTACT NUMBER FOR REPORT PROVIDED FOR REPORT. UNIT CM/SW AWARE.
[2019-05-17 15:47] VITALS: BP 138/59
--- NOTE | 2019-05-17 18:35 | NUR ---
GIVEN PATIENT ONE UNIT RBC. POOR APPETITE. DC TO ALT AT [id number]
== END 2019-05-17 17:30 | DRG 813 ==
LOC: 2N 17:39 → ICU 19:25 → 3W 05-06 17:14
PROVIDERS: Hospitalist; Internal Medicine Hematology & Oncology; Internal Medicine Rheumatology; Nurse Practitioner; Nurse Practitioner Family; ADMIT Hospitalist
PROC: 02HV33Z Insertion of Infusion Device into Superior Vena Cava, Percutaneous Approach (ICD-10-PCS; principal; 2019-04-29)
PROC: 0D9670Z Drainage of Stomach with Drainage Device, Via Natural or Artificial Opening (ICD-10-PCS; 2019-05-08)
PROC: 30233N1 Transfusion of Nonautologous Red Blood Cells into Peripheral Vein, Percutaneous Approach (ICD-10-PCS; 2019-05-17)
DX: D75.82 Heparin induced thrombocytopenia (HIT) (principal); G93.41 Metabolic encephalopathy; J96.90 Respiratory failure, unspecified, unspecified whether with hypoxia or hypercapnia; N17.9 Acute kidney failure, unspecified; I50.32 Chronic diastolic (congestive) heart failure; I48.92 Unspecified atrial flutter; N39.0 Urinary tract infection, site not specified; E87.0 Hyperosmolality and hypernatremia; E44.0 Moderate protein-calorie malnutrition; M31.9 Necrotizing vasculopathy, unspecified; I74.9 Embolism and thrombosis of unspecified artery; D68.9 Coagulation defect, unspecified; F32.9 Major depressive disorder, single episode, unspecified; I25.10 Atherosclerotic heart disease of native coronary artery without angina pectoris; I48.91 Unspecified atrial fibrillation; E78.5 Hyperlipidemia, unspecified; M35.00 Sjogren syndrome, unspecified; R53.82 Chronic fatigue, unspecified; M10.9 Gout, unspecified; E03.9 Hypothyroidism, unspecified; G89.29 Other chronic pain; M54.9 Dorsalgia, unspecified; M19.90 Unspecified osteoarthritis, unspecified site; F41.9 Anxiety disorder, unspecified; G47.33 Obstructive sleep apnea (adult) (pediatric); G47.00 Insomnia, unspecified; R58 Hemorrhage, not elsewhere classified; I35.0 Nonrheumatic aortic (valve) stenosis; I11.0 Hypertensive heart disease with heart failure; D53.9 Nutritional anemia, unspecified; K21.9 Gastro-esophageal reflux disease without esophagitis; G25.81 Restless legs syndrome; I73.9 Peripheral vascular disease, unspecified; Z88.0 Allergy status to penicillin; Z88.2 Allergy status to sulfonamides; Z88.8 Allergy status to other drugs, medicaments and biological substances; Z88.1 Allergy status to other antibiotic agents; Z91.041 Radiographic dye allergy status; Z68.28 Body mass index [BMI] 28.0-28.9, adult; I25.2 Old myocardial infarction; Z95.1 Presence of aortocoronary bypass graft; Z86.718 Personal history of other venous thrombosis and embolism; Z90.49 Acquired absence of other specified parts of digestive tract; Z90.710 Acquired absence of both cervix and uterus; Z95.2 Presence of prosthetic heart valve; Z79.82 Long term (current) use of aspirin; Z79.899 Other long term (current) drug therapy
CPT/HCPCS: 10078; 10779; 10879